=== PATIENT | female | born 1945 | race Caucasian/White ===

== ENCOUNTER 2019-07-13 17:22 | Inpatient (IN) ==
--- NOTE | 2019-07-13 17:46 | PROVIDER DOCUMENTATION ---
HPI-Chest Pain - General Stated Complaint: weakness Time Seen by Provider: 07/13/19 17:50 Source: patient Allergies/Adverse Reactions: Patient Allergies Allergy/AdvReac Type Severity Reaction Status Date / Time hydrochlorothiazide Allergy Unknown Verified 07/13/19 17:50 [From Dyazide] triamterene [From Dyazide] Allergy Unknown Verified 07/13/19 17:50 Home Medications: Home Medication List Medication Instructions Recorded Confirmed Last Taken Type Timolol 0.5% Oph Solution 1 drop BOTH EYES BID 04/11/18 07/13/19 04/11/18 21:00 History [Timoptic 0.5% Oph Solution] Gabapentin [Neurontin] 100 mg PO QHS capsule 04/13/18 07/13/19 Unknown Rx Rivaroxaban [Xarelto] 20 mg PO WSUPPER #30 tab 04/13/18 07/13/19 Unknown Rx ATORVAstatin [Lipitor] 1 tab PO QHS 07/13/19 07/13/19 Unknown History Albuterol 2.5MG/Ipratrop 0.5MG 1 inh INH PRN PRN 07/13/19 07/13/19 Unknown History [Duoneb (A & A)] Amiodarone [Cordarone] 1 tab PO BID 07/13/19 07/13/19 Unknown History Anastrozole 1 tab PO DAILY 07/13/19 07/13/19 Unknown History Aspirin 1 tab PO DAILY 07/13/19 07/13/19 Unknown History Benzonatate 1 cap PO TID 07/13/19 07/13/19 Unknown History Budesonide [Pulmicort] 1 inh INH PRN PRN 07/13/19 07/13/19 Unknown History Famotidine 2 tab PO BID 07/13/19 07/13/19 Unknown History Hydrocodone/Acetaminophen 1 tab PO Q4H PRN 07/13/19 07/13/19 Unknown History [Hydrocodone-Acetamin 5-325 mg] Insulin Glargine,Hum.rec.anlog 10 units SQ QHS 07/13/19 07/13/19 Unknown History [Lantus Solostar] Latanoprost 0.005% Oph Soln 1 drp BOTH EYES HS 07/13/19 07/13/19 Unknown History [Xalatan 0.005% Oph Soln] Levofloxacin 1 tab PO DAILY 07/13/19 07/13/19 Unknown History Methocarbamol 1 tab PO Q6H 07/13/19 07/13/19 Unknown History Metoprolol Succinate E.r. [Toprol 1 tab PO BID 07/13/19 07/13/19 Unknown History Xl] Ondansetron HCl [Zofran] 1 tab PO PRN PRN 07/13/19 07/13/19 Unknown History Trazodone [Desyrel] 1 tab PO QHS 07/13/19 07/13/19 Unknown History - History of Present Illness-CP Nature of Presenting Problem: 74 yr old F, hx of atrial fibrillation, s/p CABG 5 wks ago, presents with 3 days hx of worsening tightness and pressure in her chest, radiating into arms bilaterally, along with associated SOB. Pt stated she had been feeling weak for the past couple of days, and when her symptoms worsened today, she had to come in. She recently had a CABG done by a Dr. Durant in [place] a little over a month ago. Pt has been here for the past two nights with similar complaints, but states that her symptoms are worse today, notably her shortness of breath. She denies chest pain; instead describing it as a pressure. She denies nausea, vomiting. Location: reports: central Chest Pain Radiation: reports: arms Quality of Pain: reports: pressure, tightness Review of Systems - Adult - REVIEW OF SYSTEMS - ADULT Constitutional: reports: no symptoms reported Eyes: reports: no symptoms reported Ears, Nose, Mouth & Throat: reports: no symptoms reported Cardiovascular: reports: see HPI, chest pain Respiratory: reports: shortness of breath Gastrointestinal: reports: no symptoms reported Genitourinary: reports: no symptoms reported Musculoskeletal: reports: no symptoms reported Neurological: reports: no symptoms reported Psychiatric: reports: no symptoms reported Endocrine: reports: no symptoms reported Past History - Adult - PAST MEDICAL HISTORY-ADULT Review of Records: reports: Old Records Reviewed, Nursing Assessment Review Major Childhood Illnesses: reports: denies history Cardiovascular: reports: HTN Respiratory: reports: denies history Gastrointestinal: reports: GERD Obstetrical/Gynecological: reports: denies history Genitourinary: reports: denies history Musculoskeletal: reports: denies history Neurological: reports: denies history Psychiatric: reports: denies history Endocrine/Immune: reports: Diabetes Other Conditions: reports: other (sleep apnea) - PRIOR SURGERIES/PROCEDURES Surgical/Procedure History: reports: reviewed, not pertinent, colonoscopy, CABG, hysterectomy, other (cataract removal) - IMMUNIZATION STATUS Childhood Immunizations: See Nurse Assessment Flu Vaccine: See Nurse Assessment - FAMILY HISTORY Family History: reviewed, not pertinent Physical Exam-General - PHYSICAL EXAM-ADULT Initial Vital Signs Reviewed: Yes - CONSTITUTIONAL General Appearance: alert, mild distress - EYES Eyes: PERRL/EOMI - HEAD, EARS, NOSE, MOUTH & THROAT HENMT: normocephalic/atraumatic - NECK Neck: full range of motion - RESPIRATORY Respiratory: chest non-tender, lungs clear, normal breath sounds - CARDIOVASCULAR Cardiovascular: regular rate, rhythm - HEART Score HEART Score: History: Moderately Suspicious HEART Score: ECG: Non-Specific Repolarization Disturbance/LBBB/PM HEART Score: Age: > or = 65 Years HEART Score: Risk Factors for Atherosclerotic Disease: > or = 3 Risk Factors or History of Atherosclerotic Disease HEART Score: Troponin: < or = Normal Limit Total HEART Score:: 6 Progress - PLAN OF CARE/RESULTS Progress/Plan/Lab Results: Vital Signs - 8 hr 07/13/19 17:35 07/13/19 17:40 07/13/19 17:43 Temperature 98.1 F Pulse Rate 78 78 78 Respiratory Rate 26 H 27 H 29 H Blood Pressure 178/78 178/78 169/98 O2 Sat by Pulse Oximetry 92 L 93 L 96 07/13/19 17:45 07/13/19 18:00 07/13/19 18:15 Temperature Pulse Rate 77 74 73 Respiratory Rate 30 H 30 H 30 H Blood Pressure O2 Sat by Pulse Oximetry 96 95 96 07/13/19 18:30 07/13/19 18:45 07/13/19 18:50 Temperature Pulse Rate 76 74 74 Respiratory Rate 28 H 31 H 31 H Blood Pressure 207/106 O2 Sat by Pulse Oximetry 95 95 93 L 07/13/19 19:01 07/13/19 19:24 07/13/19 19:31 Temperature Pulse Rate 73 73 73 Respiratory Rate 24 20 24 Blood Pressure 214/102 216/105 230/91 O2 Sat by Pulse Oximetry 98 97 96 07/13/19 20:01 07/13/19 20:23 07/13/19 20:28 Temperature Pulse Rate 70 76 71 Respiratory Rate 24 23 24 Blood Pressure 236/93 206/96 193/100 O2 Sat by Pulse Oximetry 97 99 99 07/13/19 20:31 Temperature Pulse Rate 68 Respiratory Rate 23 Blood Pressure 190/90 O2 Sat by Pulse Oximetry 99 Laboratory Results - last 24 hr 07/13/19 07/13/19 07/13/19 18:30 18:30 18:30 WBC RBC Hgb Hct MCV MCH MCHC RDW Std Deviation Plt Count MPV Immature Gran % (Auto) Neut % (Auto) Lymph % (Auto) Wolfe % (Auto) Eos % (Auto) Baso % (Auto) Immature Gran # (Auto) Neut # (Auto) Lymph # (Auto) Wolfe # (Auto) Eos # (Auto) Baso # (Auto) PT 16.7 H D INR 1.33 D PTT (Actin FS) 33.9 Sodium Potassium Chloride Carbon Dioxide Anion Gap BUN Creatinine Estimated GFR/1.73 m2 BUN/Creatinine Ratio Glucose Estimat Average Glucose Hemoglobin A1c Calculated Osmolality Calcium Magnesium Total Bilirubin AST ALT Alkaline Phosphatase Creatine Kinase 39 Troponin T Qmc-[id number]-[id number] Pept 4788 H Total Protein Albumin Globulin Albumin/Globulin Ratio Urine Source Urine Color Urine Turbidity Urine pH Ur Specific Headrick Urine Protein Ur Glucose (Stick) Ur Ketones (Stick) Urine Blood Urine Nitrite Urine Bilirubin Urobilinogen Dipstick Urine Leukocytes Urine WBC (Auto) Urine RBC (Auto) U Epithel Cells (Auto) Urine Bacteria (Auto) 07/13/19 07/13/19 07/13/19 18:30 18:30 18:30 WBC 9.37 RBC 3.67 L Hgb 9.8 L Hct 31.2 L MCV 85.0 MCH 26.7 L MCHC 31.4 L RDW Std Deviation 14.9 H Plt Count 367 MPV 8.7 Immature Gran % (Auto) 0.2 Neut % (Auto) 77.7 H Lymph % (Auto) 13.7 L Wolfe % (Auto) 6.0 Eos % (Auto) 2.2 Baso % (Auto) 0.2 Immature Gran # (Auto) 0.02 Neut # (Auto) 7.28 H Lymph # (Auto) 1.28 Wolfe # (Auto) 0.56 Eos # (Auto) 0.21 Baso # (Auto) 0.02 PT INR PTT (Actin FS) Sodium Potassium Chloride Carbon Dioxide Anion Gap BUN Creatinine Estimated GFR/1.73 m2 BUN/Creatinine Ratio Glucose Estimat Average Glucose 146 Hemoglobin A1c 6.7 H Calculated Osmolality Calcium Magnesium Total Bilirubin AST ALT Alkaline Phosphatase Creatine Kinase Troponin T < 0.010 Lum-V-Qqjeugnsvho Pept Total Protein Albumin Globulin Albumin/Globulin Ratio Urine Source Urine Color Urine Turbidity Urine pH Ur Specific Headrick Urine Protein Ur Glucose (Stick) Ur Ketones (Stick) Urine Blood Urine Nitrite Urine Bilirubin Urobilinogen Dipstick Urine Leukocytes Urine WBC (Auto) Urine RBC (Auto) U Epithel Cells (Auto) Urine Bacteria (Auto) 07/13/19 07/13/19 07/13/19 21:30 21:30 22:26 WBC RBC Hgb Hct MCV MCH MCHC RDW Std Deviation Plt Count MPV Immature Gran % (Auto) Neut % (Auto) Lymph % (Auto) Wolfe % (Auto) Eos % (Auto) Baso % (Auto) Immature Gran # (Auto) Neut # (Auto) Lymph # (Auto) Wolfe # (Auto) Eos # (Auto) Baso # (Auto) PT INR PTT (Actin FS) Sodium 139 Potassium 3.2 L Chloride 98 Carbon Dioxide 24 L Anion Gap 17 BUN 10 Creatinine 0.8 Estimated GFR/1.73 m2 > 60 BUN/Creatinine Ratio 13 Glucose 177 H Estimat Average Glucose Hemoglobin A1c Calculated Osmolality 281 Calcium 9.4 Magnesium 1.4 L Total Bilirubin 1.01 H AST 12 ALT 11 Alkaline Phosphatase 124 H Creatine Kinase Troponin T < 0.010 Dda-D-Waqjsrrmiqy Pept Total Protein 7.0 Albumin 4.1 Globulin 2.9 Albumin/Globulin Ratio 1.4 Urine Source CLEAN CATCH Urine Color STRAW Urine Turbidity CLEAR Urine pH 6.5 Ur Specific Headrick 1.007 Urine Protein NEGATIVE Ur Glucose (Stick) NEGATIVE Ur Ketones (Stick) NEGATIVE Urine Blood NEGATIVE Urine Nitrite NEGATIVE Urine Bilirubin NEGATIVE Urobilinogen Dipstick NORMAL Urine Leukocytes NEGATIVE Urine WBC (Auto) <10 Urine RBC (Auto) 10-20 A U Epithel Cells (Auto) <10 Urine Bacteria (Auto) NEGATIVE Orders Category Date Time Status Cardiac Monitoring DIRECTED Care 07/13/19 17:40 Active Misc. NRSG Communication Order DIRECTED Care 07/13/19 19:28 Active CHEST-1 VIEW [RAD] Stat Exams 07/13/19 18:21 Completed A1C [A1C HGB W EST AVG GLUCOSE] [CHEM] Stat Lab 07/13/19 18:30 Completed CBC WITH DIFF [HEME] Stat Lab 07/13/19 18:30 Completed CK PROFILE [SP CHEM] Stat Lab 07/13/19 18:30 Completed COMPREHENSIVE METABOLIC PANEL [CHEM] Stat Lab 07/13/19 21:30 Completed MAGNESIUM [CHEM] Stat Lab 07/13/19 21:30 Completed PRO B-NATRIURETIC PEPTIDE Stat Lab 07/13/19 18:30 Completed PROTIME WITH INR [COAG] Stat Lab 07/13/19 18:30 Completed PTT [COAG] Stat Lab 07/13/19 18:30 Completed TROPONIN T Stat Lab 07/13/19 18:30 Completed TROPONIN T Stat Lab 07/13/19 21:30 Completed URINALYSIS W/POSS RFLX CULT [URINALYSIS] Stat Lab 07/13/19 22:26 Completed Carvedilol [Coreg] Med 07/13/19 22:58 Discontinued 6.25 mg PO NOW ONE Furosemide [Lasix] Med 07/13/19 19:28 Discontinued 20 mg IV NOW ONE Furosemide [Lasix] Med 07/13/19 22:58 Discontinued 20 mg IV NOW ONE Furosemide [Lasix] Med 07/13/19 19:25 Discontinued 40 mg IV NOW ONE Hydralazine [Apresoline] Med 07/13/19 19:25 Discontinued 10 mg IV NOW ONE Magnesium Sulfate 1 gm/D5w Med 07/13/19 22:59 Active 1 gm in 100 ml IV NOW Nitroglycerin Med 07/13/19 18:59 Discontinued 1 inch TOP NOW ONE Potassium Chloride E.r. [Klor-Con] Med 07/13/19 22:59 Discontinued 40 meq PO NOW ONE EKG [EKG] Stat Ther 07/13/19 17:40 Ordered EKG [EKG] Stat Ther 07/13/19 20:32 Draft Transfer/Admit Order [TRANSFER] Routine Transfer 07/13/19 23:01 Ordered Troponin x 1 wnl; EKG stable when compared to last 2 nights; current BP 216/105 Pt feels concerned about her safety if d/c home; in light of her multiple visits in the past few days, along with her recent CABG, will speak to hospitalist abo ut possible admission. Result Diagrams: 07/13/19 18:30 07/13/19 21:30 - EKG 1 Time of EKG reading by physician:: 17:35 EKG Read and Signed by:: Wojciech Cummins EKG Interpretation (*Must complete 3 of following elements*): Abnormal Rate: 80 Rhythm: sinus Lawrence: normal QRS: normal LA Interval: normal ST Wave: non-specific ST changes Prior EKG Comparison: unchanged from prior - CONSULTS/PCP/HOSPITALIST Notification #1 *Consult/PCP/Hospitalist*: Dr. Everett Time Discussed: 21:00 Consult Disposition: Admit Departure - Departure Date of Disposition Decision: 07/13/19 Time of Disposition Decision: 23:28 DIAGNOSIS: Chest pain Disposition: ADMITTED INPATIENT Certified Medical Emergency: Emergent Condition: Fair Referrals and Follow-Ups: Jason Dunaway MD [Primary Care Provider] - - Critical Care Note This patient required my direct & personal management of CC.: No Attestation - Physician/ CHRIS Attestation Patient care was provided by Advanced Practice Provider:: No The physician spent face to face time with patient:: Yes Advanced Practice Provider documentation review:: Supervising physician onsite and consulted in the evaluation and care of this patient. The physician did have a face to face encounter with the patient.
[2019-07-13 18:45] LABS: INR 1.33; PROTIME 16.7 Seconds (11.0-16.0)
[2019-07-13 18:46] LABS: PTT 33.9 Seconds (22.3-41.8)
--- NOTE | 2019-07-13 18:51 | Diag Imaging Result Doc PS360 ---
CHEST-1 VIEW - 07/13/2019 INDICATION: chest tightness COMPARISON: 07/11/2019 FINDINGS: There is a small left basilar pleural effusion which has decreased since the prior exam. Stable cardiomegaly. There is worsening pulmonary vascular congestion. No dense infiltrates or pulmonary edema. IMPRESSION: Mixed changes from prior. Electronically signed by Adeel Miranda 07/13/2019 6:48 PM
[2019-07-13] MEDS ORDERED: NITROGLYCERIN TOP ONE (18:59)
[2019-07-13] MEDS ORDERED: APRESOLINE IV ONE (19:25)
[2019-07-13] MEDS ORDERED: LASIX IV ONE ×3 (19:25→22:58)
--- NOTE | 2019-07-13 21:22 | EKG Report ---
Test Performed on : 07/13/2019 9:16:22 PM Test Reason : CP Blood Pressure : / mmHG Vent. Rate : 075 BPM Atrial Rate : 075 BPM P-R Int : 134 ms QRS Dur : 090 ms QT Int : 468 ms P-R-T Axes : 051 015 175 degrees QTc Int : 522 ms Normal sinus rhythm. ST & T wave abnormality, consider inferolateral ischemia Prolonged QT Abnormal ECG When compared with ECG of 13-JUL-2019 17:35, (Unconfirmed) QT has lengthened Unconfirmed Result
[2019-07-13 21:47] LABS: BASO# 0.02 X1000 (0.0-0.2); BASO% 0.2 % (0.0-0.8); EOS# 0.21 X1000 (0.0-0.7); EOS% 2.2 % (0.0-10.0); HEMATOCRIT 31.2 % (37.0-47.0); HEMOGLOBIN 9.8 g/dL (12.0-16.0); IMM GRAN# 0.02 X1000 (0.0-0.04); IMM GRAN% 0.2 % (0.0-0.5); LYMPH# 1.28 X1000 (1.2-3.4); LYMPH% 13.7 % (20.5-51.1); MCH 26.7 PG (27-31); MCHC 31.4 g/dL (33-37); MONO# 0.56 X1000 (0.11-0.59); MPV 8.7 FL (7.4-10.4); NEUT# 7.28 X1000 (1.4-6.5); NEUT% 77.7 % (42.2-75.2); PLT 367 X1000 (130-400); RBC 3.67 XMIL (4.2-5.4); RDW 14.9 % (11.5-14.5); WBC 9.37 X1000 (4.8-10.8)
[2019-07-13 22:18] LABS: AGAP 17; BUN 10 mg/dL (8-22); CALCIUM 9.4 mg/dL (8.8-10.2); CHLORIDE 98 mmol/L (98-107); COSMO 281; CREATININE 0.8 mg/dL (0.5-0.9); ESTIMATED GFR > 60; GLUCOSE 177 mg/dL (70-104); POTASSIUM 3.2 mmol/L (3.5-5.1); SODIUM 139 mmol/L (136-145); TCO2 24 mmol/L (25-35); TOTAL BILIRUBIN 1.01 mg/dL (0.20-1.00)
[2019-07-13 22:19] LABS: ALB/GLOB RATIO 1.4; ALBUMIN 4.1 g/dL (3.5-5.0); ALKALINE PHOSPHATASE 124 U/L (32-104); GOT 12 U/L (10-30); GPT 11 U/L (10-36); MAGNESIUM 1.4 mg/dL (1.5-2.7)
[2019-07-13 22:32] LABS: URINE SOURCE CLEAN CATCH
[2019-07-13 22:33] LABS: HEMOGLOBIN A1C 6.7 % (4.8-6.0)
[2019-07-13 22:49] LABS: BILIRUBIN URINE NEGATIVE (NEGATIVE); BLOOD URINE NEGATIVE (NEGATIVE); COLOR STRAW; GLUCOSE URINE NEGATIVE (NEGATIVE); KETONE URINE NEGATIVE (NEGATIVE); LEUKOCYTES URINE NEGATIVE (NEGATIVE); NITRITE URINE NEGATIVE (NEGATIVE); PH URINE 6.5; PROTEIN URINE NEGATIVE (NEGATIVE); SP GRAVITY URINE 1.007; TURBIDITY URINE CLEAR (CLEAR); UROBILINOGEN URINE NORMAL (NORMAL)
[2019-07-13 22:50] LABS: UR EPITHELIAL CELLS <10 /HPF (<10); URINE BACTERIA NEGATIVE /HPF; URINE WBC <10 /HPF (<10)
[2019-07-13] MEDS ORDERED: COREG PO ONE (22:58)
[2019-07-13] MEDS ORDERED: KLOR-CON PO ONE (22:59)
[2019-07-13] MEDS ORDERED: MAGNESIUM SULFATE 1 GM/D5W 1 GM/100 ML IVPB IV ONE (22:59)
[2019-07-14] MEDS ORDERED: NORCO-5 PO PRN (01:47)
[2019-07-14] MEDS: XARELTO PO SCH ×2 (02:22→17:22)
[2019-07-14] MEDS: HUMULIN R SUBQ SCH ×4 (06:01→21:29)
[2019-07-14 06:23] LABS: BASO# 0.03 X1000 (0.0-0.2); BASO% 0.4 % (0.0-0.8); EOS# 0.28 X1000 (0.0-0.7); EOS% 3.4 % (0.0-10.0); HEMATOCRIT 30.6 % (37.0-47.0); HEMOGLOBIN 9.6 g/dL (12.0-16.0); IMM GRAN# 0.02 X1000 (0.0-0.04); IMM GRAN% 0.2 % (0.0-0.5); LYMPH# 1.58 X1000 (1.2-3.4); LYMPH% 19.3 % (20.5-51.1); MCH 26.7 PG (27-31); MCHC 31.4 g/dL (33-37); MCV 85.2 FL (81-99); MONO# 0.59 X1000 (0.11-0.59); MONO% 7.2 % (1.7-9.3); MPV 8.5 FL (7.4-10.4); NEUT# 5.69 X1000 (1.4-6.5); NEUT% 69.5 % (42.2-75.2); PLT 352 X1000 (130-400); RBC 3.59 XMIL (4.2-5.4); RDW 14.9 % (11.5-14.5); WBC 8.19 X1000 (4.8-10.8)
[2019-07-14 06:51] LABS: AGAP 14; BUN 10 mg/dL (8-22); CALCIUM 9.2 mg/dL (8.8-10.2); CHLORIDE 99 mmol/L (98-107); CK PROFILE 34 U/L (24-173); COSMO 285; CREATININE 0.7 mg/dL (0.5-0.9); ESTIMATED GFR > 60; GLUCOSE 157 mg/dL (70-104); MAGNESIUM 1.6 mg/dL (1.5-2.7); POTASSIUM 3.4 mmol/L (3.5-5.1); SODIUM 142 mmol/L (136-145); TCO2 29 mmol/L (25-35)
--- NOTE | 2019-07-14 08:42 | EKG Report ---
Test Performed on : 07/14/2019 06:32:09 AM Test Reason : CHF Exacerbation,Chest Pain Blood Pressure : / mmHG Vent. Rate : 068 BPM Atrial Rate : 068 BPM P-R Int : 138 ms QRS Dur : 086 ms QT Int : 468 ms P-R-T Axes : 059 -09 123 degrees QTc Int : 497 ms Normal sinus rhythm. ST & T wave abnormality, consider anterolateral ischemia Abnormal ECG When compared with ECG of 13-JUL-2019 21:16, (Unconfirmed) No significant change was found Confirmed by Marshall ESQUEDA, Arnoldo Jones ([id number]) on 07/15/2019 8:26:15 AM
--- NOTE | 2019-07-14 08:44 | EKG Report ---
Test Performed on : 07/13/2019 5:35:41 PM Test Reason : CP Blood Pressure : / mmHG Vent. Rate : 080 BPM Atrial Rate : 080 BPM P-R Int : 144 ms QRS Dur : 090 ms QT Int : 414 ms P-R-T Axes : 056 014 148 degrees QTc Int : 477 ms Normal sinus rhythm. ST & T wave abnormality, consider lateral ischemia Prolonged QT Abnormal ECG When compared with ECG of 13-JUL-2019 17:34, (Unconfirmed) No significant change was found Unconfirmed Result
[2019-07-14] MEDS ORDERED: TOPROL XL PO SCH (09:00)
[2019-07-14] MEDS ORDERED: CORDARONE PO SCH (09:00)
[2019-07-14] MEDS: PEPCID PO SCH ×2 (10:02→20:43)
[2019-07-14] MEDS: LASIX IV SCH ×2 (10:02→20:43)
[2019-07-14] MEDS: ASPIRIN PO SCH (10:02)
[2019-07-14] MEDS: ARIMIDEX PO SCH (10:03)
[2019-07-14] MEDS: DUONEB (A & A) INH PRN ×2 (10:20→16:34)
[2019-07-14] MEDS ORDERED: MAGNESIUM SULFATE 2 GM/S.W.I. 2 GM/50 ML IVPB IV ONE (11:15)
--- NOTE | 2019-07-14 12:01 | HISTORY AND PHYSICAL ---
PRIMARY CARE PROVIDER: Jason Dunaway MD NATURAL RESOURCES EXTENSION EDUCATOR: Keith Toscano MD DATE AND TIME: 07/13/2019 at 2200. CHIEF COMPLAINT: Chest pressure and shortness of breath. HISTORY OF PRESENT ILLNESS: Ms. Ozuna is a 74-year-old female with a past medical history most notable for coronary artery disease status post coronary artery bypass graft approximately [address] Durant at [facility]. She also has a history of paroxysmal atrial fibrillation on chronic anticoagulation with Xarelto. The patient states that for approximately 3 days now she has had constant chest pressure that is in the center of her chest. She states she feels like someone is sitting on her chest. Though it has been constant for 3 days she does report becomes worse at times, especially when she exerts herself. The patient reports some associated symptoms of dizziness, though does have a history of vertigo. She is reporting shortness of breath as well. She also reports some orthopnea and exertional dyspnea. She also reports that she has had worsening swelling in her bilateral lower extremities over the past couple days as well. She denies any headache, abdominal pain, nausea or vomiting. The patient has reported a few episodes of diarrhea today. She states this has only occurred today. She has not been around anyone with similar symptoms. She has not had any recent travel, or any changes in medicines or any new medicines. She denies any hematochezia or melena. She is reporting some dysuria. Other than her swelling in bilateral extremities, she denies any other pain, numbness or tingling in extremities. Upon evaluation in the ER, EKG performed did show normal sinus rhythm at a rate of 80. When compared to her most recent EKG, there does not appear to be any acute changes. The patient does have T-wave inversion in leads 1, V4, V5 and V6. Though this was not present on her EKG in November, it was present on the EKG that was done a couple of days ago. Chest x- ray did show a small left basilar pleural effusion which has decreased since the prior exam. There is stable cardiomegaly, though there is worsening pulmonary vascular congestion, there are no dense infiltrates or pulmonary edema noted. The patient's blood pressure has been quite elevated in the ER with the readings in the 200/100 diastolically. ProBNP was elevated at 4788, though CK and troponin were negative at this time. She did have some mild hypokalemia and hypomagnesemia. She will be placed inpatient for further treatment evaluation of likely CHF exacerbation. REVIEW OF SYSTEM: A 14-point review of systems was conducted with the patient. All were negative except for pertinent positives mentioned above HPI. PAST MEDICAL HISTORY: 1. Coronary artery disease status post coronary artery bypass graft from for [address] Durant at [facility]. 2. Paroxysmal atrial fibrillation on chronic anticoagulation with Xarelto. 3. Hypertension. 4. Hyperlipidemia. 5. Diabetes mellitus. 6. Asthma. 7. Iron-deficiency anemia. 8. Unknown congenital heart anomaly. 9. History of malignant neoplasm of the left breast status post lumpectomy and radiation. 10. Glaucoma. 11. Vertigo. PAST SURGICAL HISTORY: 1. Coronary artery bypass graft. 2. Bilateral cataract surgery. 3. Cardiac ablation. 4. Rhinoplasty. 5. Right arm surgery x3 secondary to fractures. 6. Right ankle surgery. 7. Hysterectomy. SOCIAL HISTORY: The patient has no known history of tobacco, alcohol or illicit drug use. She does live by herself at assisted living facility. She does have assistive devices for ambulation of a cane and a walker. Her son was present at bedside during my examination. FAMILY HISTORY: Positive for her mother having a history of lung cancer, diabetes mellitus, and hypertension. Her father had a history of renal cell carcinoma, diabetes mellitus, heart disease and hypertension. She does have 1 brother who has a history of prostate cancer. ALLERGIES: Patient has allergies to hydrochlorothiazide and Dyazide. HOME MEDICATIONS: 1. DuoNeb nebulizer treatments, inhaled p.r.n. as directed. 2. Amiodarone 200 mg tablet p.o. b.i.d. 3. Anastrozole 1 mg p.o. daily. 4. Aspirin 325 mg p.o. daily. 5. Lipitor 40 mg p.o. at bedtime. 6. Tessalon Perles 100 mg capsule p.o. t.i.d. for cough. 7. Pulmicort nebulizer treatment inhaled p.r.n. as directed. 8. Famotidine 40 mg p.o. b.i.d. 9. Gabapentin 100 mg p.o. at bedtime. 10. Helen 5 mg tablet p.o. q.4 hours p.r.n. for pain. 11. Lantus 10 units subcutaneous at bedtime. 12. Latanoprost 0.005% ophthalmic solution, 1 drop in both eyes at bedtime. 13. Levaquin 750 mg p.o. daily. 14. Methocarbamol 500 mg p.o. 6 hours. 15. Toprol-XL 100 mg p.o. b.i.d. 16. Zofran 4 mg p.o. p.r.n. as directed. 17. Xarelto 20 mg p.o. with supper. 18. Timolol 0.5% ophthalmic solution, 1 drop in both eyes b.i.d. 19. Desyrel 50 mg tablet p.o. at bedtime. DIAGNOSTIC DATA: White blood cell count is 9370, hemoglobin 9.8, hematocrit is 31.2, platelet count is 367,000. PT 16.7, INR 1.33, PTT is 33.9. Sodium 139, potassium 3.2, chloride 98, serum bicarbonate 24, BUN 10, creatinine 0.8, glucose 177, calcium 9.4, magnesium 1.4. Liver function tests are within normal limits except for total bilirubin is slightly elevated at 1.01. Alkaline phosphatase is slightly elevated at 124. CK is 39. Troponin is less than 0.01. ProBNP was 4788. Urinalysis was obtained via clean catch, was positive for 10 to 20 red blood cells. It was otherwise negative for protein, glucose, ketones, blood cells, or bacteria. EKG showed normal sinus rhythm at a rate of 80 with a QTc of 477. Chest x-ray showed a small left basilar pleural effusion. This is decreased since prior exam. There is stable cardiomegaly. There is worsening pulmonary vascular congestion negative. No dense infiltrates or pulmonary edema. PHYSICAL EXAMINATION: VITAL SIGNS: Heart rate 68, respirations 20, blood pressure is 190/90. Oxygen saturation is 99 to 100 percent nasal cannula at 2 L. GENERAL: Ms. Ozuna is a pleasant 74-year-old female. She was resting in the ER stretcher. She was in no acute distress. She was awake, alert, and able to answer questions appropriately. HEENT: Head is atraumatic, normocephalic. Pupils are equal, round, reactive to light were 3 mm bilaterally brisk. Oral mucosa is moist. NECK: Supple. Trachea midline. There is no overt JVD noted. There is no hepatic jugular reflex present. CARDIOVASCULAR: Patient has S1-S2 present. No murmurs, gallops, rubs appreciated with a regular rate and rhythm. PULMONARY: Patient has symmetrical chest expansion bilaterally. Lung sounds are clear to auscultation in bilateral upper clement though she was diminished in bilateral bases. ABDOMEN: Soft, does not appear to be distended. The patient does have a protuberant abdomen noted. Bowel sounds were present in all 4 quadrants, were normoactive. EXTREMITIES: No cyanosis noted. The patient does have 1 to 2+ pitting edema noted in bilateral lower extremities from the knees down. Pulse, motor, and sensory is intact in all extremities. Radial and pedal pulses were 2+ bilaterally. NEUROLOGICAL: Patient is alert and oriented to person, place, time and situation. She is she is able to move all extremities. There were no focal neurological deficits noted. ASSESSMENT AND PLAN: 1. Congestive heart failure exacerbation. For this, we have given the patient initial 40 mg of Lasix in the ER. We will monitor response to this with strict intake and output and daily weights. We have continued her regularly prescribed medicines of amiodarone, metoprolol. We will continue with the series of cardiac enzymes. We will repeat EKG in the morning. The patient did have transesophageal echocardiogram performed in November 2018, had an estimated ejection fraction of 60%. Though given her recent coronary artery bypass graft and reported symptoms we will go ahead and order to have this repeated. We have placed a consult with Cardiology with Dr. Toscano and will await his evaluation and further recommendations for management. 2. Coronary artery disease status post coronary artery bypass graft 5 weeks ago. We will continue her aspirin in the other already prescribed heart medications as mentioned above. 3. Paroxysmal atrial fibrillation on chronic anticoagulation with Xarelto. We have continued her amiodarone and Toprol. We will continue to follow. Her heart rate is controlled at this time. 4. Hypertension. We will continue her regularly prescribed medicines. The patient's blood pressure was elevated upon arrival in the ER though after being given nitroglycerin paste, IV hydralazine and a 1 time dose of Coreg has improved with the most recent reading being 154/66. 5. Hyperlipidemia. We will continue her atorvastatin. 6. Diabetes mellitus. We will continue her Lantus. We have also placed her with sliding scale regular insulin coverage as well. 7. Deep vein thrombosis prophylaxis. We provided with previously mentioned Xarelto. 8. Mild electrolyte abnormalities of hypokalemia and hypomagnesemia. The patient's potassium was 3.2, magnesium was 1.4. We have ordered for her to receive replacement of both of these. We will recheck chemistries tomorrow morning. She has been placed on PVC unit with continuous cardiac telemetry for close monitoring. We will do frequent vital signs, strict intake and output, incentive spirometry. She will be on a diabetic and heart healthy diet. Further orders and recommendations pending hospital course, diagnostic studies, and physician evaluation. Dictated by DREAD Heller for Hank Everett MD This patient was interviewed and examined simaltaneously with DREAD. All findings and treatment plans were discussed at that time. This dictation acurately reflects our findings and treatment plan. cc: Hank Everett MD MTDD
[2019-07-14] MEDS: TIMOPTIC 0.5% OPH SOLUTION BOTH EYES SCH ×2 (12:23→20:45)
[2019-07-14] MEDS: ALDACTONE PO SCH (12:24)
--- NOTE | 2019-07-14 16:33 | Diag Imaging Result Doc PS360 ---
CT THORAX W/O CONTRAST - 07/14/2019 INDICATION: ATELECTASIS LEFT LUNG COMPARISON: Chest x-ray from 07/13/2019 FINDINGS: There are sternotomy wires and CABG changes. Heart size is normal with no pericardial effusion. There is a small left basilar pleural effusion. There is some collapse of the lingula and left lower lobe. There is a trace right pleural effusion as well. There is some hazy interstitial infiltrate bilaterally compatible with pulmonary edema. There are moderate degenerative changes of the spine. No acute or suspicious bony lesion. IMPRESSION: 1. Interstitial pulmonary edema. 2. Trace right and small left pleural effusions. 3. Mild collapse of the left lower lobe and lingula. This exam was performed using automated exposure control, adjustment of mA or kV according to patient size, and/or use of iterative reconstruction technique Electronically signed by Adeel iMranda 07/14/2019 4:31 PM
--- NOTE | 2019-07-14 16:42 | PROGRESS NOTE ---
DATE: 07/14/2019 SUBJECTIVE: Today Ms. Ozuna referred to be doing fairly okay. Continues to have some shortness of breath. Ms. Ozuna was admitted yesterday because of progressively worsening shortness of breath associated with dyspnea on exertion, orthopnea and PND. Ms. Ozuna underwent CABG about 6 weeks ago for coronary artery disease. OBJECTIVE: Vital Signs: This morning, her blood pressure was 134/81, pulse of 73, respiration was 20, temperature 97.9 degrees. Patient was saturating 100% on 2 L. General: On general exam, Ms. Ozuna is a 74-year-old female. She was in bed in no distress. HEENT: Mucosa is pink and moist. Anicteric. Acyanotic. Neck: Supple. I did not really see any JVD. Chest: Air entry was bilaterally reduced. There was diffuse crackles in posterior lung clement. Cardiovascular: Regular rate and rhythm. No murmurs. There was a fresh sternotomy scar on the anterior chest wall. Abdomen: Soft. It is distended, but nontender. Bowel sounds present, but hypoactive. Extremities: Positive pedal edema bilaterally, about 1+. 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 There is no focal neurological deficit. LABORATORY DATA: Has been reviewed. Patient has mild normocytic anemia with a hemoglobin of 9.6. Chemistry is also reviewed. Potassium was 3.4. Rest of chemistry was unremarkable. IMAGING STUDIES: 1. A chest x-ray did show mixed changes from prior. 2. An EKG repeat this morning shows normal sinus rhythm with voltage criteria for left ventricular hypertrophy. T-wave inversion in the lateral leads. 3. The patient pro-B on admission was 4788, almost the same as the one he had 3 days ago. 4. So far, troponins have been negative. ASSESSMENT: 1. Dyspnea on presentation associated with orthopnea and paroxysmal nocturnal dyspnea, suggestive of congestive heart failure in exacerbation. The patient is currently on diuretic therapy. Echocardiogram is going to be performed. Patient will be seen by Cardiology. 2. History of coronary artery disease status post coronary artery bypass graft from about 5 to [address] More in [facility]. 3. Hypertension, uncontrolled; titrate medications. 4. Diabetes mellitus. 5. Dyslipidemia. cc: MD MAYRA Leblanc
[2019-07-14] MEDS ORDERED: BENADRYL PO ONE (17:02)
[2019-07-14] MEDS: LOPRESSOR PO SCH (17:22)
--- NOTE | 2019-07-14 17:36 | CARDIOLOGY CONSULTATION ---
DATE: 07/14/2019 CONSULTATION REQUESTED BY: Hospitalist service. PRIMARY HEAD LIBRARIAN: Keith Toscano. SURGEON: Ajit Durant. PHYSICIAN: Trevin Hull. REASON FOR THE CONSULTATION: Congestive heart failure, dyspnea. HISTORY: Mrs. Ozuna is a 74-year-old female who presented to the emergency room on 3 consecutive days on July 11, again on July 12 and then on July 13 with increasing dyspnea and generalized weakness, fatigue. The patient says that she had undergone open heart surgery in [place] on 06/01/2019. At that time, the surgery included coronary bypass surgery with left mammary artery to LAD, vein graft to 1st obtuse marginal branch and vein graft to the posterior descending branch of the right coronary artery. They also did a bilateral pulmonary venous ablation and ligation of the left atrial appendage. Dr. Ajit Durant was the performing surgeon. The patient was kept there in [place] for about a week and then she was discharged to a rehab facility to continue her convalescence. She was kept for a couple of weeks at the rehab facility and then she was discharged home. The patient said that she was still significantly breathless and she never really got back to a full presurgical status and continued to decline over the course of the ensuing days and that is the reason why she ended up presenting back to the hospital. Upon presentation, they did a chest x-ray that shows mixed changes including small left basilar pleural effusion, stable cardiomegaly, worsening pulmonary vascular congestion. ProBNP level was elevated at 4788. BUN was 10, creatinine 0.8. Potassium was low at 3.2. White cell count 9370, hemoglobin 9.8 g percent. Sodium 139. Liver function test, bilirubin is 1.01, alkaline phosphatase 124. PAST HISTORY: Somewhat extensive. She was found to have an abnormal stress test with mild degree of ischemia of the anterior wall of the left ventricle. 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 Heart catheterization was performed in August 2015. Subsequently, she developed paroxysmal atrial fibrillation and has undergone pulmonary venous ablation by Dr. Castañeda in [place] and after the ablation she developed recurrent atrial fibrillation and at that time, they suggested a reassessment of her coronary arteries and they concluded that she needed to have bypass surgery, which was carried out by Dr. Durant as I described at the beginning of the H and P. The patient has history of hypertension, hyperlipidemia. She has been diagnosed with breast cancer and diabetes mellitus. She has sleep apnea syndrome. SURGICAL HISTORY: Cataract extraction, hysterectomy, left breast lumpectomy with cancer. [facility]. SOCIAL HISTORY: She is . She has 1 child. The patient has been on disability because of poor vision. She is not a drinker. FAMILY HISTORY: Positive for heart disease in her father and son. REVIEW OF SYSTEMS: Since her discharge from [facility], she has been complaining of some exertional dyspnea. No significant chest pain. The incisional area has healed gradually. HOME MEDICATIONS: Listed included albuterol, amiodarone 200 twice a day, anastrozole 1 tablet daily which is 1 mg daily, atorvastatin is 40 mg daily, Pulmicort as needed, famotidine is 40 mg twice a day ,gabapentin 100 at bedtime, metoprolol ER 100 mg twice a day, Xarelto 20 mg at bedtime, timolol eye drops and trazodone. She also takes Levaquin and methocarbamol. PHYSICAL EXAMINATION: Vital signs: Blood pressure is 157/64, temperature 98.6 degrees, pulse 73, respirations 20. She is awake, alert, no distress. HEENT: No jugular venous distention. She does have cervical bruits. Chest: Well healed sternotomy scar. Shows diminished breath sounds at the left base. Heart: Sounds are regular rhythmic. I do not hear murmurs. No gallop. Abdomen: Nontender. Extremities: Show good pulses. No edema. Neuro: Nonfocal. Moves 4 extremities. Her 12 lead EKG done at 6:32 a.m. today shows sinus rhythm with a nonspecific T-wave abnormality. There are no pathological Q-waves to suspect a recent infarction. IMPRESSION: 1. Patient who presents with increasing dyspnea following open-heart CABG procedure about 6 weeks ago or so. 2. 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 3. History of paroxysmal atrial fibrillation, status post pulmonary venous isolation procedure and then recent surgical procedure for the same reason. 4. History of breast cancer, stable. 5. History of hypertension. 6. History of diabetes mellitus type 2. 7. Suspect diastolic heart failure versus loculated pleural effusion on the left lung to explain her current symptoms. RECOMMENDATION: We will do an echocardiogram. I will get a CT scan of the chest without contrast. We will add ELIDA inhibitors to her regimen. We will see how she does. At this time, she does not appear to be in acute distress. Further advice will be forthcoming. cc: Carson Burt MD MTDD
--- NOTE | 2019-07-14 18:09 | ECHO REPORT ---
ORDER DATE: 07/14/2019 INTERPRETING PHYSICIAN: Carson Burt MD. CLINICAL INDICATIONS: CHF, post bypass. M-MODE MEASUREMENTS: Left ventricle end diastole: 4.2 cm. Left ventricle end systole: 2.4 cm. Posterior wall: 0.8 cm. Interventricular septum: 0.9 cm. Left atrium: 3.9 cm. Aortic diameter: 3.0 cm. SUMMARY OF 2-DIMENSIONAL IMAGIN. The study was technically difficult. The left ventricular function is normal, ejection fraction of 64%. There is no wall motion abnormality. 2. The right ventricle appears to be normal. 3. The left atrium is mild to moderately enlarged. 4. The aortic valve looks normal. Color flow mapping unremarkable. 5. The mitral valve shows mild degree of regurgitation. 6. Pulse wave Doppler of mitral inflow shows a pseudonormal pattern, tall E wave with a short A wave. 7. The tissue Doppler of septal and lateral mitral annulus shows a decreased velocity at 5 cm indicating impaired left ventricular relaxation. 8. The pulmonary venous flow is normal. The deceleration time of E wave is not short. 9. The E/E prime ratio is significantly elevated indicating elevation of left atrial pressure. 10.There is significant diastolic dysfunction. 11.The Doppler pattern of aortic valve is unremarkable. 12.The pulmonic valve shows an unremarkable pattern with mild degree of regurgitation. There is calcification of the mitral annulus. 13.I do not see evidence of pericardial effusion, although the pericardium appears to be somewhat thickened. SUMMARY: This study shows: 1. Excellent left ventricular systolic function. 2. Mild to moderately enlargement of left atrium. 3. Pulmonary pressure is estimated in this study at 33-38 mmHg. 4. Diastolic dysfunction with elevation of left atrial pressure. Clinical correlation is recommended. cc: Carson Burt MD [facility]
[2019-07-14] MEDS: LIPITOR PO SCH (20:43)
[2019-07-14] MEDS: ALTACE PO SCH (20:43)
[2019-07-14] MEDS: NEURONTIN PO SCH (20:43)
[2019-07-14] MEDS: XALATAN 0.005% OPH SOLN BOTH EYES SCH (21:30)
[2019-07-14] MEDS: LANTUS INSULIN SUBQ SCH (21:36)
[2019-07-15] MEDS: LOPRESSOR PO SCH ×3 (01:13→17:17)
[2019-07-15] MEDS ORDERED: LASIX IV ONE (04:38)
[2019-07-15] MEDS: HUMULIN R SUBQ SCH ×4 (06:22→20:58)
--- NOTE | 2019-07-15 07:18 | EKG Report ---
Test Performed on : 07/15/2019 06:36:31 AM Test Reason : paroxysmal atrial fibrillation Blood Pressure : / mmHG Vent. Rate : 058 BPM Atrial Rate : 058 BPM P-R Int : 140 ms QRS Dur : 090 ms QT Int : 552 ms P-R-T Axes : 050 -04 092 degrees QTc Int : 541 ms Sinus bradycardia. Possible Left atrial enlargement Left ventricular hypertrophy with repolarization abnormality Prolonged QT Abnormal ECG When compared with ECG of 14-JUL-2019 06:32, (Unconfirmed) Nonspecific T wave abnormality, improved in Inferior leads T wave inversion no longer evident in Anterolateral leads Confirmed by Marshall ESQUEDA, Arnoldo Jones ([id number]) on 07/15/2019 8:35:29 AM
[2019-07-15 07:32] LABS: IRON SATURATION 13 %; TIBC 272 ug/dL; TOTAL IRON 35 ug/dL (49-151); UNBOUND IRON 237 ug/dL (112-346)
--- NOTE | 2019-07-15 07:36 | Diag Imaging Result Doc PS360 ---
CHEST-PORTABLE - 07/15/2019 INDICATION: Crackles bilaterally, SOB COMPARISON: 07/13/2019 FINDINGS: There is a small to moderate left basilar pleural effusion that has worsened since prior. Stable cardiomegaly and pulmonary vascular congestion. No definite edema. IMPRESSION: Worsening left basilar pleural effusion. Electronically signed by Adeel Miranda 07/15/2019 7:34 AM
[2019-07-15 07:42] LABS: AGAP 15; BUN 12 mg/dL (8-22); CALCIUM 9.4 mg/dL (8.8-10.2); CHLORIDE 96 mmol/L (98-107); COSMO 278; CREATININE 0.8 mg/dL (0.5-0.9); ESTIMATED GFR > 60; GLUCOSE 147 mg/dL (70-104); MAGNESIUM 1.6 mg/dL (1.5-2.7); POTASSIUM 2.7 mmol/L (3.5-5.1); SODIUM 138 mmol/L (136-145); TCO2 27 mmol/L (25-35)
[2019-07-15 08:00] LABS: FERRITIN 149 ng/mL (13-150)
[2019-07-15] MEDS ORDERED: MAGNESIUM SULFATE 4 GM/S.W.I. 4 GM/100 ML IVPB IV ONE (08:11)
[2019-07-15] MEDS: TIMOPTIC 0.5% OPH SOLUTION BOTH EYES SCH ×2 (08:35→20:44)
[2019-07-15] MEDS ORDERED: MAGNESIUM SULFATE 2 GM/S.W.I. 2 GM/50 ML IVPB IV ONE ×2 (08:36→09:00)
[2019-07-15] MEDS: ALTACE PO SCH ×2 (08:49→20:43)
[2019-07-15] MEDS: ASPIRIN PO SCH (08:49)
[2019-07-15] MEDS: LASIX IV SCH ×2 (08:50→20:43)
[2019-07-15] MEDS: PEPCID PO SCH ×2 (08:50→20:44)
[2019-07-15] MEDS: POTASSIUM CHLORIDE 20% LIQUID PO SCH ×2 (08:50→12:38)
[2019-07-15] MEDS: ALDACTONE PO SCH ×5 (08:50→21:18)
[2019-07-15] MEDS: CORDARONE PO SCH (08:50)
[2019-07-15] MEDS ORDERED: POTASSIUM CHLORIDE 20 MEQ/SWI 20 MEQ/100 ML IVPB IV SCH (09:00)
[2019-07-15] MEDS: ARIMIDEX PO SCH (09:06)
[2019-07-15] MEDS: DUONEB (A & A) INH PRN (10:07)
--- NOTE | 2019-07-15 10:21 | CARDIOLOGY PROGRESS NOTE ---
DATE: 07/15/2019 CHIEF COMPLAINT: Shortness of breath, weakness. SUBJECTIVE: Ms. Ozuna is feeling better today. She is not having any chest pain. She is not short of breath. EKG done today shows sinus rhythm with a nonspecific T wave abnormality. Echocardiogram that we did yesterday shows well preserved left ventricular systolic function. There is no wall motion abnormality. A chest CT shows a mild collapse of the left lower lobe and lingula with a trace right and a small left pleural effusion with interstitial pulmonary edema. The patient at this time seems to be more comfortable. OBJECTIVE: Blood pressure is 162/50, temperature 98.2, pulse 61, respirations 17. She is awake, alert and oriented, no distress. HEENT is unremarkable. Chest reveals diminished breath sounds in the left lung with some dullness to percussion at the left base. Heart sounds are regular and rhythmic without gallop or murmur. Abdomen is soft, nontender. No masses. No hepatomegaly. Extremities show good pulses, no peripheral edema. Neurologic: Follows commands. Moves all 4 extremities. DIAGNOSTIC DATA: Blood work shows sodium 138, potassium 2.7, BUN is 12, creatinine 0.8. Her iron is 35, total iron binding capacity is 272. Saturation is 13%. IMPRESSION: 1. The patient presents with increasing dyspnea, malaise, shortness of breath. Findings consistent with congestive heart failure, diastolic type. 2. Status post coronary bypass surgery x3 on 06/01/2019. 3. History of paroxysmal atrial fibrillation, status post percutaneous ablation and also intraoperative ablation of atrial fibrillation. 4. History of hypertension. 5. History of diabetes mellitus type 2. 6. 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 RECOMMENDATIONS: The patient at this time seems to be better. She has hyperkalemia. We are going to replace potassium and magnesium. I am going to add spironolactone to her regimen to try to get her potassium stabilized and her heart failure stabilized. I think the patient will probably do well by going to a rehab facility for a few days if feasible. If not, we will just try to make sure that there is good nursing followup at home. cc: Carson Burt MD
[2019-07-15] MEDS: VENOFER 250 MG in NS 150 ML IV SCH (11:19)
--- NOTE | 2019-07-15 13:30 | PROGRESS NOTE ---
DATE: 07/15/2019 SUBJECTIVE: This morning, Ms. Ozuna refers to be doing a little better. Said her breathing has significantly improved. OBJECTIVE: Vital Signs: Blood pressure is 162/50, pulse 61, respirations are 17, temperature is 98.2 degrees, patient is saturating 98% on 2 L. General Examination: Ms. Ozuna is a 74-year- old, elderly, female. She is in bed. No distress. HEENT: Mucosa is pink and moist. Anicteric. Acyanotic. Neck: Supple. No JVD. Chest: Air entry is bilaterally reduced. There are still some crackles posteriorly. Cardiovascular: Regular rate and rhythm. No murmurs. There is a sternotomy scar on the anterior chest wall. GI: Abdomen is soft. Distended but nontender. Bowel sounds present. Extremities: About 1+ pedal edema. CRUSHER PLANT OPERATOR: The patient is awake, alert, oriented. Is and Os: Not documented. Current weight is 186. Patient's weight on admission was 198. This is about a 12 pound weight loss. Current medications have all been reviewed. Laboratory Data: The patient is normocytic anemic. Chemistry shows a potassium of 2.7. Iron studies reveal a percent saturation of 13 which is remarkably low. Despite the ferritin being within normal range, we think the patient is iron deficient. ASSESSMENT: 1. Dyspnea on presentation secondary to congestive heart failure with a preserved ejection fraction. Patient's echocardiogram yesterday showed ejection fraction of 64% with no wall motion abnormality. There was diastolic dysfunction noted on the echocardiogram. 2. Fluid overload secondary to congestive heart failure. We will continue with the diuretic therapy. 3. Uncontrolled hypertension. We will continue titrating her blood pressure medication for adequate pressure control. 4. Diabetes mellitus, on insulin. 5. Dyslipidemia. We will continue with statin therapy. 6. Hypokalemia, will be replaced. 7. Relative iron deficiency. The patient has been started on Venofer infusion. 8. Generalized weakness and deconditioning. We will get physical therapy to start working with Ms Ozuna. cc: Nico Galvez MD
[2019-07-15] MEDS: TYLENOL PO PRN (15:09)
[2019-07-15] MEDS: XARELTO PO SCH (17:17)
[2019-07-15] MEDS: NEURONTIN PO SCH (20:43)
[2019-07-15] MEDS: LIPITOR PO SCH (20:43)
[2019-07-15] MEDS: XALATAN 0.005% OPH SOLN BOTH EYES SCH (20:45)
[2019-07-15] MEDS: LANTUS INSULIN SUBQ SCH (21:18)
[2019-07-16] MEDS: LOPRESSOR PO SCH ×3 (01:36→17:06)
[2019-07-16 05:48] LABS: HEMATOCRIT 31.3 % (37.0-47.0); HEMOGLOBIN 9.6 g/dL (12.0-16.0); MCH 27.2 PG (27-31); MCHC 30.7 g/dL (33-37); MCV 88.7 FL (81-99); MPV 8.5 FL (7.4-10.4); RBC 3.53 XMIL (4.2-5.4); WBC 8.32 X1000 (4.8-10.8)
[2019-07-16 06:14] LABS: AGAP 11; BUN 13 mg/dL (8-22); CALCIUM 9.3 mg/dL (8.8-10.2); CHLORIDE 97 mmol/L (98-107); COSMO 280; CREATININE 0.9 mg/dL (0.5-0.9); ESTIMATED GFR > 60; GLUCOSE 144 mg/dL (70-104); MAGNESIUM 2.1 mg/dL (1.5-2.7); POTASSIUM 3.3 mmol/L (3.5-5.1); SODIUM 139 mmol/L (136-145); TCO2 31 mmol/L (25-35)
[2019-07-16] MEDS: HUMULIN R SUBQ SCH ×4 (06:23→21:53)
--- NOTE | 2019-07-16 07:22 | EKG Report ---
Test Performed on : 07/16/2019 06:50:49 AM Test Reason : paroxysmal atrial fibrillation Blood Pressure : / mmHG Vent. Rate : 057 BPM Atrial Rate : 057 BPM P-R Int : 142 ms QRS Dur : 088 ms QT Int : 498 ms P-R-T Axes : 053 -09 108 degrees QTc Int : [address] & T wave abnormality, consider lateral ischemia Prolonged QT Abnormal ECG When compared with ECG of 15-JUL-2019 06:36, T wave inversion now evident in Lateral leads QT has shortened Confirmed by Marshall ESQUEDA, Arnoldo Jones ([id number]) on 07/16/2019 8:25:02 AM
[2019-07-16] MEDS: ALTACE PO SCH ×2 (08:06→20:02)
[2019-07-16] MEDS: CORDARONE PO SCH (08:06)
[2019-07-16] MEDS: PEPCID PO SCH ×2 (08:06→20:02)
[2019-07-16] MEDS: LASIX IV SCH ×2 (08:06→20:02)
[2019-07-16] MEDS: VENOFER 250 MG in NS 150 ML IV SCH (08:06)
[2019-07-16] MEDS: ARIMIDEX PO SCH (08:07)
[2019-07-16] MEDS: ASPIRIN PO SCH (08:07)
[2019-07-16] MEDS: ALDACTONE PO SCH ×3 (08:07→20:02)
[2019-07-16] MEDS: TIMOPTIC 0.5% OPH SOLUTION BOTH EYES SCH ×2 (08:16→20:03)
[2019-07-16] MEDS ORDERED: KLOR-CON PO ONE (08:44)
[2019-07-16] MEDS: DUONEB (A & A) INH PRN (09:15)
--- NOTE | 2019-07-16 11:06 | PROGRESS NOTE ---
DATE: 07/16/2019 SUBJECTIVE: This morning, Ms. Ozuna refers to be doing fairly okay, feels slightly stronger than yesterday. OBJECTIVE: Vital Signs: Blood pressure is 154/65, pulse of 60, respirations 18, temperature 98.2 degrees, the patient is saturating 97% on room air. General: Ms. Ozuna is a 74-year-old, elderly, female. She is in bed. No distress. HEENT: Mucosa is pink and moist. Anicteric. Acyanotic. Neck: Supple. Chest: Good air entry bilateral. There are still a few crackles in the posterior lung clement. Cardiovascular: Regular rate and rhythm. No murmurs, no rubs, no gallops. There is a sternotomy scar on the anterior chest wall. Gastrointestinal: Abdomen is soft, distended, but nontender. Bowel sounds present. Extremities: No pedal edema. APIGEE DEVELOPER: The patient is awake, alert, and oriented. Urine output has not been documented. LABORATORY DATA: Hemoglobin is 9.6, rest of CBC is unremarkable. Chemistry is also reviewed. Normal renal function. Potassium is 3.3. This will be replaced orally. MEDICATIONS: Medications have all been reviewed. No changes currently. ASSESSMENT: 1. Dyspnea on presentation secondary to congestive heart failure exacerbation. 2. Fluid overload due to congestive heart failure with preserved ejection fraction. 3. Left lower lobe atelectasis on CT scan. The patient is getting respiratory therapy. 4. Uncontrolled hypertension. Blood pressures are a lot better today. We are going to continue with medication titration. 5. Diabetes mellitus. Controlled on insulin therapy. 6. Dyslipidemia. The patient is on statin. 7. Relative iron deficiency. The patient is getting iron infusion. 8. Hypokalemia. Will continue to replace. 9. Generalized weakness and deconditioning. Physical Therapy is on board. In general, I think Ms. Ozuna is doing a lot better. Hypoxemia is improving. She is getting respiratory therapy for the atelectasis of the lungs. She is getting gentle diuresis for the congestive heart failure. Her current weight is 186, she was 198 on admission, and she obviously clinically is losing the weight. We are going to continue with the current treatment, and will re-evaluate her tomorrow morning to assess her readiness for discharge. She is pending a Physical Therapy evaluation today. cc: Nico Galvez MD
--- NOTE | 2019-07-16 13:00 | CARDIOLOGY PROGRESS NOTE ---
DATE: 07/16/2019 CHIEF COMPLAINT: Shortness of breath, weakness, and fatigue. SUBJECTIVE: Mrs. Ozuna is still feeling somewhat tired. She is on oxygen. She still does not feel up to par. She denies having any chest pain. She tells me that she is supposed to have a followup with Dr. Durant at his office tomorrow. Otherwise, she feels like she is better than when she first came in. OBJECTIVE: Blood pressure today is 154/65, pulse 56, respirations 16, temperature 98.2. She is awake, alert, in no distress. HEENT unremarkable. Chest reveals diminished breath sounds in the left base. Heart sounds are regular and rhythmic without gallop or murmur. Abdomen is soft, nontender. Extremities show good pulses, no peripheral edema. Neurologic exam: Follows commands. Moves all four extremities. IMPRESSION: 1. The patient who presented with increasing dyspnea and shortness of breath. She appears to have congestive heart failure, diastolic type. This is probably complicated by the presence of left lower lobe atelectasis/pleural effusion secondary to her recent coronary bypass procedure from 06/01/2019. 2. History of paroxysmal atrial fibrillation, status post percutaneous ablation and also intraoperative atrial fibrillation. 3. 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 4. History of hypertension. 5. History of diabetes mellitus type 2. RECOMMENDATIONS: The patient will continue present management of diastolic heart failure with spironolactone. Will try to optimize electrolytes. We will check arterial blood gases on room air in the morning. She may need to be discharged on oxygen. She will follow up with Dr. Durant as suggested and later on she will follow up with Dr. Keith Toscano at the office. cc: Carson Burt MD [facility]
[2019-07-16] MEDS: TYLENOL PO PRN ×2 (13:54→20:02)
[2019-07-16] MEDS: XARELTO PO SCH (17:06)
[2019-07-16] MEDS: LIPITOR PO SCH (20:02)
[2019-07-16] MEDS: NEURONTIN PO SCH (20:02)
[2019-07-16] MEDS: XALATAN 0.005% OPH SOLN BOTH EYES SCH (20:03)
[2019-07-16] MEDS: LANTUS INSULIN SUBQ SCH (21:54)
[2019-07-17] MEDS: LOPRESSOR PO SCH ×3 (03:50→22:33)
[2019-07-17 04:21] LABS: BLOOD TYPE ARTERIAL; SAMPLE BLOOD
[2019-07-17 04:22] LABS: ALLEN TEST YES; BE 8.3 mmoll (-3.0-3.0); HCO3-(ACT) 31.3 mmoll (20.0-26.0); METHB 0.7 % (0.0-1.5); O2(CT) 12.9 mL/dL (15.0-23.0); O2HB 91.3 % (95.0-99.0); PCO2(98.6) 48 mmHg (35-45); PO2(98.6) 61 mmHg (60-100); SAO2 94.5 % (95.0-100.0); pH(98.6) 7.45 (7.35-7.45)
[2019-07-17 04:23] LABS: MODALITY ROOM AIR
[2019-07-17 06:11] LABS: CREATININE 1.1 mg/dL (0.5-0.9); MAGNESIUM 1.9 mg/dL (1.5-2.7); POTASSIUM 4.5 mmol/L (3.5-5.1)
[2019-07-17] MEDS: HUMULIN R SUBQ SCH ×4 (07:00→22:34)
--- NOTE | 2019-07-17 07:52 | EKG Report ---
Test Performed on : 07/17/2019 07:03:55 AM Test Reason : paroxysmal atrial fibrillation Blood Pressure : / mmHG Vent. Rate : 057 BPM Atrial Rate : 057 BPM P-R Int : 142 ms QRS Dur : 088 ms QT Int : 516 ms P-R-T Axes : 051 005 107 degrees QTc Int : 502 ms Sinus bradycardia. Left ventricular hypertrophy with repolarization abnormality Prolonged QT Abnormal ECG When compared with ECG of 16-JUL-2019 06:50, No significant change was found Confirmed by Marshall ESQUEDA, Arnoldo Jones ([id number]) on 07/17/2019 9:07:52 AM
[2019-07-17] MEDS: TIMOPTIC 0.5% OPH SOLUTION BOTH EYES SCH ×2 (08:07→20:07)
[2019-07-17] MEDS: VENOFER 250 MG in NS 150 ML IV SCH (08:07)
[2019-07-17] MEDS: ALTACE PO SCH ×2 (08:08→20:05)
[2019-07-17] MEDS: ARIMIDEX PO SCH (08:08)
[2019-07-17] MEDS: LASIX IV SCH (08:09)
[2019-07-17] MEDS: ALDACTONE PO SCH (08:09)
[2019-07-17] MEDS: PEPCID PO SCH ×2 (08:09→20:05)
[2019-07-17] MEDS: ASPIRIN PO SCH (08:09)
[2019-07-17] MEDS: CORDARONE PO SCH (08:10)
--- NOTE | 2019-07-17 15:37 | CARDIOLOGY PROGRESS NOTE ---
DATE: 07/17/2019 CHIEF COMPLAINT: Shortness of breath. SUBJECTIVE: Ms. Ozuna is generally feeling better. Yesterday we did blood gases on room air. CO2 is 48, pH 7.45, and pO2 61. Saturation was 94.5%. The patient feels somewhat better in general. OBJECTIVE: Vital Signs: Blood pressure is 161/71, temperature 97.5, pulse 59, and respirations 19. General: She is awake, alert, oriented, and in no distress. HEENT: Unremarkable. Respiratory: Chest shows diminished breath sounds in the left base. The right lung sounds clear. Abdomen: Her abdomen is nontender. Extremities: The extremities show no obvious edema. Neurological: She follows commands and moves all extremities. IMPRESSION: 1. Patient who presented with increasing dyspnea and was found to have atelectasis and a pleural effusion on the left side of the chest. This is probably a postoperative complication related to her recent coronary artery bypass procedure. 2. 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 3. Paroxysmal atrial fibrillation status post percutaneous ablation and also intraoperative defibrillation. 4. History of hypertension. 5. History of diabetes mellitus type 2. RECOMMENDATIONS: At this time since the patient is doing better we are going to make adjustments to her medications. I will probably ask her to take a lower dose of metoprolol and also decrease her spironolactone and stop the Lasix. We will reset her visit with Dr. Ajit Durant in [place]. She was supposed to see him today. She will follow up at the office with Dr. Keith Toscano who is her regular pc network technician. cc: Carson Burt MD
--- NOTE | 2019-07-17 15:59 | PROGRESS NOTE ---
DATE: 07/17/2019 SUBJECTIVE: This morning Ms. Ozuna refers to just be feeling weak, tired, and she does not think that she can go home. OBJECTIVE: Vital signs: Blood pressure is 144/45, pulse of 55, respirations 20, temperature 97.9 degrees. General: Ms. Ozuna is a 74-year-old, elderly female. She was in bed, no distress. HEENT: Mucosa is slightly pale but anicteric and acyanotic. Neck: Supple. Chest: Good air entry bilaterally. There are still a few crackles posteriorly. Cardiovascular: Regular rate and rhythm. No murmurs. No rubs. No gallops. There is a sternotomy scar on the anterior chest wall. GI: Abdomen is soft, nontender. Bowel sounds present. Extremities: No pedal edema. LURER: Patient is awake, alert, and oriented. LABORATORY DATA: Chemistry was unremarkable. Glucose 145. CURRENT MEDICATIONS: Have all been reviewed. No changes. ASSESSMENT: 1. Dyspnea on presentation secondary to congestive heart failure exacerbation. 2. Fluid overload secondary to congestive heart failure. Improved on diuretic therapy. 3. Left lower lobe atelectasis on CT scan. We will continue with respiratory therapy's recommendations. The patient is also on incentive spirometer. 4. Severe uncontrolled hypertension, improving. 5. Diabetes mellitus. Controlled on insulin regimen. 6. Dyslipidemia. 7. Iron deficiency. Patient is getting iron infusion. 8. Hypokalemia, replaced. 9. Generalized weakness and deconditioning. The patient has been evaluated by physical therapy and she seems to be doing fairly okay. PLAN: So in general, I think Ms. Huffs blood pressures are a lot better controlled. Congestive symptoms seem to be improving. This morning she, however, feels very fatigued and tired. We are going to observe her overnight. She is getting iron infusion. We will re-evaluate her tomorrow and see how she is. cc: Nico Galvez MD
[2019-07-17] MEDS: XARELTO PO SCH (16:32)
[2019-07-17] MEDS: NEURONTIN PO SCH (20:05)
[2019-07-17] MEDS: LIPITOR PO SCH (20:05)
[2019-07-17] MEDS: TYLENOL PO PRN (20:06)
[2019-07-17] MEDS: XALATAN 0.005% OPH SOLN BOTH EYES SCH (20:07)
[2019-07-17] MEDS: LANTUS INSULIN SUBQ SCH (22:34)
[2019-07-17] MEDS: DUONEB (A & A) INH PRN (22:43)
[2019-07-18] MEDS: TYLENOL PO PRN (05:02)
[2019-07-18 06:19] LABS: CALCIUM 9.4 mg/dL (8.8-10.2); POTASSIUM 3.5 mmol/L (3.5-5.1)
[2019-07-18] MEDS: HUMULIN R SUBQ SCH ×2 (06:33→11:17)
[2019-07-18] MEDS ORDERED: POTASSIUM CHLORIDE 20% LIQUID PO ONE (07:35)
[2019-07-18] MEDS ORDERED: SAMSCA PO ONE (07:36)
[2019-07-18] MEDS: PEPCID PO SCH (08:56)
[2019-07-18] MEDS: ALTACE PO SCH (08:56)
[2019-07-18] MEDS: CORDARONE PO SCH (08:57)
[2019-07-18] MEDS: ASPIRIN PO SCH (08:57)
[2019-07-18] MEDS: TIMOPTIC 0.5% OPH SOLUTION BOTH EYES SCH (08:58)
[2019-07-18] MEDS: ARIMIDEX PO SCH (08:58)
[2019-07-18] MEDS: VENOFER 250 MG in NS 150 ML IV SCH (08:58)
[2019-07-18] MEDS: LOPRESSOR PO SCH (09:00)
--- NOTE | 2019-07-18 11:15 | CARDIOLOGY PROGRESS NOTE ---
DATE: 07/18/2019 CHIEF COMPLAINT: Shortness of breath. SUBJECTIVE: Mrs. Ozuna appears to be a little bit confused today. Her bedside nurse is concerned. The patient indeed appears to be slightly lethargic, although, she does follow commands. She is legally blind, however, she is able to follow commands and moving 4 extremities equally. PHYSICAL EXAMINATION: Vital signs: Today, blood pressure 137/55, pulse is 62, respirations 17, temperature 97.4. General: She is awake, in no distress. HEENT: Unremarkable. Chest: Sounds better than yesterday. Both lung clement are clear. Heart: Sounds are regular and rhythmic. I do not hear a gallop or murmur. Abdomen: Nontender. Extremities: Showed no edema. Neurologic exam: As I said, she does not seem to have a focal deficit other than she appears to be legally blind. BLOOD WORK: Sodium 133, potassium 3.5, BUN 18, creatinine 1.0. IMPRESSION: 1. Patient who has increasing dyspnea, elevated ProBNP, post open heart surgery. Likely diastolic heart failure. 2. 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 3. History of hypertension. 4. History of diabetes. 5. Hyponatremia. 6. Borderline hypokalemia. RECOMMENDATIONS: At this time, we are going to replace potassium. We will add tolvaptan 15 mg daily. I am going to check a ProBNP level. I would like to see her working with Physical Therapy and see in what kind of condition she has had before discharging her home. Her last chest x-ray was done on the and it showed the atelectatic/effusion change in the left lung. I will discuss the case with Dr. Galvez, who is the admitting doctor. cc: Carson Burt MD
[2019-07-18 12:31] VITALS: BP 152/65
[2019-07-19] MEDS ORDERED: ALDACTONE PO SCH (10:45)
--- NOTE | 2019-07-19 10:50 | DISCHARGE SUMMARY ---
ADMISSION DATE: 07/13/2019 DISCHARGE DATE: 07/18/2019 DISPOSITION: Home. FOLLOW-UP: 1. Dr. Jason Dunaway. 2. Dr. Keith Toscano. 3. Dr. Ajit Durant in [facility]. CONSULTATION DURING THIS ADMISSION: Cardiology was consulted; patient was seen by Dr. Burt. INVASIVE PROCEDURES DONE DURING THIS ADMISSION: None. IMAGING STUDIES OF SIGNIFICANCE: 1. A chest x-ray did show mixed changes from prior. 2. Echocardiogram showed an ejection fraction of 64%. No wall motion abnormality. 3. A CT scan of the chest showed interstitial pulmonary edema, mild collapse of the left lower lobe and lingula. 4. A repeat chest x-ray showed worsening left basilar effusion. ADMISSION DIAGNOSES: 1. Congestive heart failure exacerbation. 2. Coronary artery disease status post coronary artery bypass graft 5 weeks ago. 3. Paroxysmal atrial fibrillation on chronic anticoagulation with Xarelto. 4. Hypertension. DIAGNOSES AT THE TIME OF DISCHARGE: 1. Dyspnea on exertion on presentation secondary to congestive heart failure exacerbation. 2. Fluid overload secondary to congestive heart failure. 3. Left lower lobe atelectasis on CT scan. 4. Severe uncontrolled hypertension, improved. 5. Diabetes mellitus. 6. Dyslipidemia. 7. Normocytic anemia with iron deficiency. 8. Generalized weakness and deconditioning. 9. Hypokalemia, replaced. 10. History of coronary artery disease status post coronary artery bypass graft 5 weeks ago. DISCHARGE MEDICATIONS: 1. Gabapentin 100 mg p.o. at bedtime. 2. Xarelto 20 mg p.o. with supper. 3. Albuterol. 4. Anastrozole 1 mg p.o. daily. 5. Aspirin 325 p.o. daily. 6. Atorvastatin 40 mg p.o. daily. 7. Benzonatate. 8. Famotidine 40 mg p.o. b.i.d. 9. Glargine 10 units at bedtime. 10. Levaquin has been discontinued. 11. Methocarbamol 500 mg q. 6 hours. 12. Metoprolol-XL 100 mg b.i.d. 13. Trazodone 50 mg p.o. daily. 14. Amiodarone 200 mg p.o. b.i.d. 15. Spironolactone 25 mg p.o. q. 48 hours. 16. Ramipril 5 mg p.o. b.i.d. 17. Iron sulfate 325 p.o. daily. 18. Multivitamin. 19. Criselda-Colace 1 tablet b.i.d. PRESENTING COMPLAINT: Chest pressure and shortness of breath. HISTORY OF PRESENTING COMPLAINT: Ms. Ozuna is a 74-year-old female with a history of recent CABG about 5 weeks ago, who is supposed to follow up with Dr. Durant in [place], came to the emergency department because of shortness of breath. Upon presentation, she was found to have a blood pressure reading of 200/100. Pro-B was also elevated. She was thought to be in congestive heart failure. She was admitted for further medical care. HOSPITAL COURSE: Ms. Ozuna was admitted to [facility] under telemonitoring, was started on IV diuretic therapy, for which her congestive symptoms did improve. Ms. Ozuna was found to be extremely hypertensive, was started on multiple regimen of antihypertensive medication, and she did feel a lot better. She was seen by Cardiology (Dr. Burt) during the hospital course. Ms. Ozuna was also found to be iron deficient and was given a couple doses of IV Venofer. All her electrolyte abnormalities were all replaced. She was evaluated on 2 occasions by physical therapy, and per documentation she seems to show good maintained balance without any hand support. She also seems to have very good maintained balance in terms of static positioning, as well as static sitting and standing. Today Ms. Ozuna refers to be feeling a lot better. She still feels slightly tired, but she does have an appointment with Dr. Durant tomorrow at 10 and we prefer that she goes for that appointment. We think that clinically she is stable for discharge. Her blood pressures are a lot better, congestive symptoms are a lot better and iron has been replaced. All the discharge instructions have been discussed with her. She voiced understanding. TIME SPENT FOR DISCHARGE: 38 minutes. cc: MD Jason Leblanc MD Richard Clay Peter Johnson, MD
== END 2019-07-18 13:48 | disposition home health service (06) | DRG 292 ==
LOC: SUPCPDRO → ED 17:22 → SUATTDRO 23:26 → 2N 23:26
PROVIDERS: ATTEND Internal Medicine

== ENCOUNTER 2019-07-27 10:24 | Observation (INO) ==
--- NOTE | 2019-07-27 11:13 | EKG Report ---
Test Performed on : 07/27/2019 10:27:48 AM Test Reason : CP, SOB Blood Pressure : / mmHG Vent. Rate : 109 BPM Atrial Rate : 136 BPM P-R Int : 000 ms QRS Dur : 086 ms QT Int : 320 ms P-R-T Axes : 000 014 166 degrees QTc Int : 430 ms Atrial fibrillation. with rapid ventricular response. ST & T wave abnormality, consider inferolateral ischemia Abnormal ECG When compared with ECG of 17-JUL-2019 07:03, Atrial fibrillation. has replaced Sinus rhythm. Vent. rate has increased BY 52 BPM QT has shortened Unconfirmed Result
[2019-07-27 11:18] LABS: BASO# 0.05 X1000 (0.0-0.2); BASO% 0.5 % (0.0-0.8); EOS# 0.09 X1000 (0.0-0.7); EOS% 0.9 % (0.0-10.0); HEMATOCRIT 36.2 % (37.0-47.0); HEMOGLOBIN 11.7 g/dL (12.0-16.0); IMM GRAN# 0.03 X1000 (0.0-0.04); IMM GRAN% 0.3 % (0.0-0.5); LYMPH# 1.72 X1000 (1.2-3.4); LYMPH% 17.3 % (20.5-51.1); MCH 27.4 PG (27-31); MCHC 32.3 g/dL (33-37); MCV 84.8 FL (81-99); MONO# 0.81 X1000 (0.11-0.59); MONO% 8.1 % (1.7-9.3); MPV 9.8 FL (7.4-10.4); NEUT# 7.27 X1000 (1.4-6.5); NEUT% 72.9 % (42.2-75.2); PLT 325 X1000 (130-400); RBC 4.27 XMIL (4.2-5.4); RDW 16.2 % (11.5-14.5); WBC 9.97 X1000 (4.8-10.8)
--- NOTE | 2019-07-27 11:27 | Diag Imaging Result Doc PS360 ---
EXAM: CHEST-1 VIEW INDICATION: SOP, chest pressure TECHNIQUE: One view COMPARISON: 07/15/2019 FINDINGS: The lungs are grossly clear. The effusion on the left than on the previous study has grossly resolved by plain radiograph. There is no evidence of pneumothorax. There are stable CABG changes. The cardiomediastinal silhouette and central vasculature are unremarkable, otherwise. IMPRESSION: No evidence of acute pathology by plain radiograph. Electronically signed by Benjamin Cabrera 07/27/2019 11:25 AM
[2019-07-27 11:31] LABS: INR 1.9; PROTIME 22.2 Seconds (11.0-16.0)
[2019-07-27 11:32] LABS: PTT 37.2 Seconds (22.3-41.8)
[2019-07-27 11:53] LABS: ALB/GLOB RATIO 1.1; ALBUMIN 3.8 g/dL (3.5-5.0); CALCIUM 9.8 mg/dL (8.8-10.2); CREATININE 1.2 mg/dL (0.5-0.9); MAGNESIUM 1.4 mg/dL (1.5-2.7); POTASSIUM 4.9 mmol/L (3.5-5.1); TOTAL BILIRUBIN 0.42 mg/dL (0.20-1.00); TOTAL PROTEIN 7.2 g/dL (6.3-8.3)
--- NOTE | 2019-07-27 12:59 | PROVIDER DOCUMENTATION ---
This chart was entered by Stacey Harris Scribe, acting as scribe for Bhavin Baig MD. HPI-General Adult - General Chief Complaint: Chest Pain Stated Complaint: WEAKNESS Time Seen by Provider: 07/27/19 10:28 Source: patient Allergies/Adverse Reactions: Patient Allergies Allergy/AdvReac Type Severity Reaction Status Date / Time hydrochlorothiazide Allergy Unknown Verified 07/13/19 17:50 [From Dyazide] triamterene [From Dyazide] Allergy Unknown Verified 07/13/19 17:50 Home Medications: Home Medication List Medication Instructions Recorded Confirmed Last Taken Type Timolol 0.5% Oph Solution 1 drop BOTH EYES BID 04/11/18 07/27/19 04/11/18 21:00 History [Timoptic 0.5% Oph Solution] Gabapentin [Neurontin] 100 mg PO QHS capsule 04/13/18 07/27/19 Unknown Rx Rivaroxaban [Xarelto] 20 mg PO WSUPPER #30 tab 04/13/18 07/27/19 Unknown Rx ATORVAstatin [Lipitor] 1 tab PO QHS 07/13/19 07/27/19 Unknown History Albuterol 2.5MG/Ipratrop 0.5MG 1 inh INH PRN PRN 07/13/19 07/27/19 Unknown History [Duoneb (A & A)] Amiodarone [Cordarone] 1 tab PO BID 07/13/19 07/27/19 Unknown History Anastrozole 1 tab PO DAILY 07/13/19 07/27/19 Unknown History Benzonatate 1 cap PO TID 07/13/19 07/27/19 Unknown History Budesonide [Pulmicort] 1 inh INH PRN PRN 07/13/19 07/27/19 Unknown History Famotidine 2 tab PO BID 07/13/19 07/27/19 Unknown History Hydrocodone/Acetaminophen 1 tab PO Q4H PRN 07/13/19 07/27/19 Unknown History [Hydrocodone-Acetamin 5-325 mg] Insulin Glargine,Hum.rec.anlog 10 units SQ QHS 07/13/19 07/27/19 Unknown History [Lantus Solostar] Latanoprost 0.005% Oph Soln 1 drp BOTH EYES HS 07/13/19 07/27/19 Unknown History [Xalatan 0.005% Oph Soln] Methocarbamol 1 tab PO Q6H 07/13/19 07/27/19 Unknown History Metoprolol Succinate E.r. [Toprol 1 tab PO BID 07/13/19 07/27/19 Unknown History Xl] Ondansetron HCl [Zofran] 1 tab PO PRN PRN 07/13/19 07/27/19 Unknown History Trazodone [Desyrel] 1 tab PO QHS 07/13/19 07/27/19 Unknown History Aspirin 81 mg PO DAILY chewtab 07/18/19 07/27/19 Unknown Rx Ferrous Sulfate [Iron] 325 mg PO BID #120 tab 07/18/19 07/27/19 Unknown Rx Iron/Calcium/E/Folic Acid/Mvit 1 ea PO DAILY #120 tab 07/18/19 07/27/19 Unknown Rx [Vitafol Caplet] RAMIpril [Altace] 5 mg PO BID #120 cap 07/18/19 07/27/19 Unknown Rx Sennosides/Docusate Sodium 1 ea PO BID #180 tab 07/18/19 07/27/19 Unknown Rx [Pericolace] Spironolactone [Aldactone] 25 mg PO Q48H #60 tab 07/18/19 07/27/19 Unknown Rx - History of Present Illness -Gen Adult Nature of Presenting Problems: 74yof presents to ED by EMS cc generalized weakness, especially in arms and legs and SOB since last night. Pt reports she does have some chest pressure but no pain, pounding feeling in heart that is intermittent and diarrhea but thinks it's due to all the meds she is on. Pt denies fever, chills, nausea and vomiting. Pt has hx of HTN, IDDM, AFIB and CABAG in 05/2019. Location of Pain/Injury: reports: generalized Quality of Pain: reports: other (weakness) Severity: reports: mild Onset/Duration: reports: last night Timing: reports: still present Context/Activities at Onset: reports: light activity Modifying Factors: improves with: nothing Associated Symptoms: reports: diarrhea, fatigue, shortness of breath, weakness. denies: fever/chills, nausea, vomiting Similar Symptoms Previously?: Yes Recently seen or treated by another doctor?: Yes (07/12/19 seen in ED) Review of Systems - Adult - REVIEW OF SYSTEMS - ADULT Constitutional: reports: see HPI, fatique. denies: chills, fever Eyes: reports: no symptoms reported Ears, Nose, Mouth & Throat: reports: no symptoms reported Cardiovascular: reports: see HPI, palpitations, other (chest pressure). denies: chest pain, edema Respiratory: reports: see HPI, shortness of breath. denies: cough Gastrointestinal: reports: see HPI, diarrhea. denies: nausea, vomiting Genitourinary: reports: no symptoms reported Musculoskeletal: reports: no symptoms reported Integumentary: reports: no symptoms reported Neurological: reports: no symptoms reported Psychiatric: reports: no symptoms reported Endocrine: reports: no symptoms reported Hematologic/Lymphatic: reports: no symptoms reported Allergic/Immunologic: reports: no symptoms reported All Other Systems: Reviewed and Negative Past History - Adult - PAST MEDICAL HISTORY-ADULT Review of Records: reports: Nursing Assessment Review, Medications Reviewed, Social history reviewed & non-contributory. Major Childhood Illnesses: reports: denies history Cardiovascular: reports: HTN Respiratory: reports: denies history Gastrointestinal: reports: GERD Obstetrical/Gynecological: reports: denies history Genitourinary: reports: denies history Musculoskeletal: reports: denies history Neurological: reports: denies history Psychiatric: reports: denies history Endocrine/Immune: reports: Diabetes Other Conditions: reports: other (sleep apnea) - PRIOR SURGERIES/PROCEDURES Surgical/Procedure History: reports: reviewed, not pertinent, colonoscopy, CABG, hysterectomy, other (cataract removal) - IMMUNIZATION STATUS Childhood Immunizations: See Nurse Assessment Flu Vaccine: See Nurse Assessment - FAMILY HISTORY Family History: reviewed, not pertinent - SOCIAL HISTORY Smoking: denies Physical Exam-General - PHYSICAL EXAM-ADULT Initial Vital Signs Reviewed: Yes - CONSTITUTIONAL General Appearance: appears well, alert, no apparent distress. negative: anxious, combative - EYES Eyes: PERRL/EOMI, pink conjunctivae. negative: photophobia - HEAD, EARS, NOSE, MOUTH & THROAT HENMT: moist mucous membranes. negative: angioedema - RESPIRATORY Respiratory: chest non-tender, lungs clear, normal breath sounds. negative: stridor, wheezing - CARDIOVASCULAR Cardiovascular: normal peripheral pulses, no edema, tachycardia. negative: regular rate, rhythm (regularly, irregular), bradycardia - GASTROINTESTINAL (ABDOMEN) Abdominal Exam: soft, tenderness (LLQ and RLQ, mild). negative: non tender - MUSCULOSKELETAL Back Exam: normal inspection, no CVA tenderness, no vertebral tenderness Extremity: normal inspection. negative: deformity - SKIN Integumentary: normal color. negative: diaphoresis, ecchymosis - PSYCHIATRIC Psych/Mental Status: normal mood/affect, oriented x 3. negative: anxious, d isheveled Progress - PLAN OF CARE/RESULTS Progress/Plan/Lab Results: Vital Signs - 8 hr 07/27/19 10:26 Temperature 97.7 F Pulse Rate 105 H Respiratory Rate 18 Blood Pressure 125/62 O2 Sat by Pulse Oximetry 100 Result Diagrams: 07/27/19 10:44 07/27/19 10:44 - EKG 1 Time of EKG reading by physician:: 10:45 EKG Read and Signed by:: Bhavin Baig EKG Interpretation (*Must complete 3 of following elements*): Abnormal (consider inferolateral ischemia) Rate: 109 Rhythm: afib w/rvr [place]: normal ST Wave: non-specific ST changes - XRAY 1 XRAY: Bilateral XRAY Study: Chest Impression: See EMR Report (IMPRESSION: No evidence of acute pathology by plain radiograph. Electronically signed by Benjamin Cabrera 07/27/2019 11:25 AM) - CONSULTS/PCP/HOSPITALIST Notification #1 *Consult/PCP/Hospitalist*: Dr. Armando Time Discussed: 12:49 Consult Disposition: Admit (accepted pt) Departure - Departure Date of Disposition Decision: 07/27/19 Time of Disposition Decision: 11:31 DIAGNOSIS: Weakness, JACK (acute kidney injury), Acidosis Disposition: ADMITTED INPATIENT 09 Certified Medical Emergency: Emergent Condition: Stable Additional Freetext Instructions: ED Follow Up Instructions: You have been treated by a care provider in the Emergency Department. These instructions are being provided to you so you can have an understanding of how to care for yourself upon discharge. Upon discharge from the Emergency Department, you are responsible for making arrangements for follow-up care by a physician of your choice. Take all prescribed medications as directed. Return to the Emergency Department immediately for any new or worsening symptoms. You may call the Physician Referral phone number at [phone] to obtain a list of Physicians who are taking new patients. Referrals and Follow-Ups: Jason Dunaway MD [Primary Care Provider] - - Critical Care Note This patient required my direct & personal management of CC.: No Attestation - Physician/ CHRIS Attestation Patient care was provided by Advanced Practice Provider:: No The physician spent face to face time with patient:: Yes Advanced Practice Provider documentation review:: Supervising physician onsite and consulted in the evaluation and care of this patient. The physician did have a face to face encounter with the patient. This chart was documented by the indicated scribe, (Stacey Harris Scribe) and accurately reflects the services I performed and decisions made by me, Bhavin Baig MD, as attested by the provider's signature.
[2019-07-27 13:06] LABS: ALLEN TEST YES; BE -4.1 mmoll (-3.0-3.0); BLOOD TYPE ARTERIAL; HCO3-(ACT) 21.7 mmoll (20.0-26.0); METHB 0.8 % (0.0-1.5); O2(CT) 15.9 mL/dL (15.0-23.0); O2HB 96.1 % (95.0-99.0); PCO2(98.6) 31 mmHg (35-45); PO2(98.6) 93 mmHg (60-100); SAMPLE BLOOD; SAO2 98.8 % (95.0-100.0); THB 11.7 g/dL (11.5-17.4); pH(98.6) 7.41 (7.35-7.45)
[2019-07-27 13:07] LABS: MODALITY ROOM AIR
[2019-07-27] MEDS ORDERED: ZOFRAN IV PRN (14:27)
[2019-07-27] MEDS ORDERED: NITROGLYCERIN SL PRN (14:27)
[2019-07-27] MEDS ORDERED: MAGNESIUM SULFATE 1 GM/D5W 1 GM/100 ML IVPB IV ONE (14:31)
[2019-07-27] MEDS ORDERED: NORCO-5 PO PRN (14:32)
[2019-07-27] MEDS ORDERED: ALDACTONE PO SCH (14:45)
[2019-07-27] MEDS: XARELTO PO SCH (16:19)
[2019-07-27] MEDS: ROBAXIN PO SCH ×2 (16:19→20:31)
[2019-07-27] MEDS: HUMULIN R SUBQ SCH ×2 (16:28→20:32)
--- NOTE | 2019-07-27 16:45 | HISTORY AND PHYSICAL ---
ROOFING SALES REPRESENTATIVE: Dr. Keith Toscano CHIEF COMPLAINT: Weakness. HISTORY OF PRESENT ILLNESS: Ms. Caitie Ozuna is a 74-year-old female. Ms. Ozuna states that she has been having increasing weakness, chest pressure and tightness and shortness of breath. She started having the shortness of breath last P.M. and she has been having severe weakness for the past few days, and chest pressure and tightness for the past few days. The patient states that this morning she was having difficulty getting out of bed. Her home health nurse visited her house and encouraged her to come to the hospital at that time. The patient describes her chest tightness as a heaviness and feels like something is sitting on her chest. She states the pain comes and goes. Upon inspection, she does have a midline incision down her sternum from a recent CABG in May 2019. Chest is not tender to the touch. She states that she does have shortness of breath, but that she does not have pain with her shortness of breath. The patient does also state that she has been having increasing numbness in her right middle fingers and in her bilateral feet. The patient also describes a 20-pound weight loss over the past month. The patient was recently admitted in the hospital and was discharged on 07/18/2019. She was in the hospital for congestive heart failure and was seen by Cardiology. The patient is denying any other symptoms at this time. Creatinine on this visit was 1.2. On 07/18/2019, it was 1.0. Sodium on this visit is 135. On 09/25, it was 133. ProBNP on this visit is 1431. On 07/18/2019, it was 816. Chest x-ray shows no evidence of acute pathology. Troponin is less than 0.01. EKG shows atrial fibrillation at a rate of 109. PAST MEDICAL HISTORY: Coronary artery disease status post coronary artery bypass graft by Dr. Durant at [facility] in May 2019. Paroxysmal atrial fibrillation, on chronic ventricular coagulation with Xarelto, hypertension, hyperlipidemia, diabetes mellitus, asthma, iron deficiency, anemia, unknown congenital heart anomaly. History of malignant neoplasm of the left breast status post lumpectomy and radiation. Sarcoma, vertigo. PAST SURGICAL HISTORY: Coronary artery bypass graft in May 2019, bilateral cataract surgery, cardiac ablation, rhinoplasty, right arm surgery x3 secondary to fractures, right ankle surgery, hysterectomy, lumpectomy. FAMILY HISTORY: Her mother was positive for having history of lung cancer, diabetes mellitus and hypertension. Her father had a history of renal cell carcinoma, diabetes, heart disease and hypertension. She has 1 brother who has a history of prostate cancer. SOCIAL HISTORY: The patient denies any history of alcohol, tobacco, or illicit drug use. She lives by herself at the assisted living facility. ALLERGIES: Hydrochlorothiazide and triamterene. HOME MEDICATIONS: 1. Timoptic 1 drop to both eyes b.i.d. 2. Neurontin 100 mg p.o. at bedtime. 3. Xarelto 20 mg p.o. with supper. 4. DuoNeb LYNDSEY 1 inhaled p.r.n. 5. Anastrozole 1 mg p.o. daily. 6. Atorvastatin 40 mg p.o. at bedtime. 7. Tessalon Perles 100 mg p.o. t.i.d. 8. Famotidine 20 mg 2 tabs p.o. b.i.d. 9. Hydrocodone acetaminophen 5/325 one tablet p.o. q.4 hours p.r.n. 10. Lantus 10 units subcu at bedtime. 11. Methocarbamol 500 mg p.o. q.6 hours. 12. Metoprolol succinate 100 mg p.o. b.i.d. 13. Zofran 4 mg 1 tablet p.o. p.r.n. 14. Desyrel 50 mg p.o. at bedtime. 15. Amiodarone 200 mg p.o. b.i.d. 16. Pulmicort 0.5 mg 1 inhaled p.r.n. 17. Xalatan eyedrops 1 drop to both eyes at bedtime. 18. Spironolactone 25 mg p.o. q.48 hours. 19. Altace 5 mg p.o. b.i.d. 20. Aspirin 81 mg p.o. daily. 21. Ferrous sulfate 325 mg p.o. b.i.d. 22. Multivitamin with iron 1 tablet p.o. daily. 23. Criselda Colace 1 tablet p.o. b.i.d. LABS AND DIAGNOSTICS: White blood cell count 9.97, red blood cell count 4.27, hemoglobin 11.7, hematocrit 36.2, platelet count 325,000. PT 22.2, INR 1.9, PTT 37.2. PH 7.41, pCO2 231, PO2 is 93, bicarbonate 21.7, oxyhemoglobin is 96.1, O2 saturations 98.8. Sodium is 135, potassium is 4.9, chloride 100, carbon dioxide 17, anion gap 18, BUN is 25, creatinine is 1.2, GFR is 44, glucose 170, calcium 9.8, magnesium 1.4, bilirubin 0.4, AST is 20, ALT is 10, alkaline phosphatase 87. Troponin less than 0.01, proBNP is 1431. Plasma lactate 1.2. Chest x-ray shows no evidence of acute pathology. EKG shows atrial fib with a rate of 109 beats per minute. REVIEW OF SYSTEMS: A 12 point review of systems has been obtained and are negative except what is stated above in the HPI. PHYSICAL EXAMINATION: VITAL SIGNS: Temperature 97.7 degrees, pulse rate 103, blood pressure 125/62, respiratory rate 14, O2 saturation 98% on room air. Weight 175 pounds, height 5 feet 7 inches. GENERAL: This is a 74-year-old female. She is lying in the ER stretcher. She is in no acute distress. She is well nourished and well developed. HEENT: Atraumatic, normocephalic. Pupils equal, round, reactive to light. Sclerae anicteric. Mucous membranes are moist. NECK: Supple. No lymphadenopathy. Trachea is midline. No JVD. No thyromegaly. No bruits. CARDIOVASCULAR: Irregular rate and rhythm. No murmurs, gallops, or rubs appreciated. RESPIRATORY: Lung sounds are clear with equal chest excursion. Respirations are nonlabored with no accessory muscle usage. GASTROINTESTINAL: Abdomen is soft, nontender, nondistended. Bowel sounds are present x4. NEUROLOGIC: Cranial nerves 2-12 are intact. The patient is awake, alert, oriented, able to follow all commands appropriately. MUSCULOSKELETAL: Full strength noted. No abnormalities. No deformities. EXTREMITIES: No clubbing, no cyanosis, no edema. DP and PT pulses are present and palpable. SKIN: Warm, dry, and intact. No rashes. No bruises. There is a midline incision noted from surgery from May. It is closed. There is no edema noted around the incision. There is also a very small incision noted to the anterior surface of the left knee. It is also closed. ASSESSMENT AND PLAN: 1. Chest pain. We will admit this patient to the medical floor. We are going to trend this patient's CK and troponins. Repeat EKG in the morning. I have placed this patient on spindle carver and rule her out for acute coronary syndrome. 2. Atrial fibrillation. Patient is does have chronic atrial fibrillation. Her rate is about 100. Patient does take amiodarone at home. We are going to continue her home dose amiodarone and also continue her on her Xarelto. Also, we are going to place her on spindle carver and we will repeat her EKG in the morning. 3. Diabetes mellitus. We are going to continue her home diabetic medications. We are also going to be checking her fingersticks before meals and at bedtime. We are going to provide her with sliding scale insulin as needed and place her on a diabetic diet. 4. Hypertension. The patient does take several medications at home for her hypertension. We are going to continue all these home medications. 5. Coronary artery disease. The patient had a coronary artery bypass graft back in May this year. We are going to continue all her heart medications and place her on spindle carver. We are going to rule her out for any acute coronary processes. This patient just had an echo done on last admission on 07/14/2019. I do not see any need to repeat the echo at this time. The EF did show to be about around 64% at that time. If any of her laboratory findings come back to be positive, we will consult Cardiology. She does see Dr. Keith Toscano for cardiology. 6. Hyperlipidemia. She is on some home medication for her high cholesterol, so we will continue these medications. 7. Hypomagnesemia. I am going to replace her magnesium with 1 g IV magnesium and repeat her labs in the morning to recheck. I have admitted this patient to the medical floor and placed her on spindle carver. We will repeat her labs in the morning. I am going to replace her magnesium. I am going to trend her CK and troponins and repeat her EKG in the morning. We are going to rule her out for acute coronary syndrome and all other further recommendations and treatment pending hospital course and lab data. Dictated by DREAD Lentz for Jacqueline Kay MD cc: MD Jason Ramirez MD Peter Johnson, MD I performed a face to face encounter on the patient. I reviewed all labs and imaging on the patient. I agree with the H&P as dictated. [facility]
[2019-07-27] MEDS: TYLENOL PO PRN (17:30)
[2019-07-27] MEDS: PULMICORT INH PRN (20:03)
[2019-07-27] MEDS: DUONEB (A & A) INH PRN ×2 (20:03→23:03)
[2019-07-27] MEDS: FERROUS SULFATE PO SCH (20:31)
[2019-07-27] MEDS: CORDARONE PO SCH (20:31)
[2019-07-27] MEDS: TOPROL XL PO SCH (20:31)
[2019-07-27] MEDS: DESYREL PO SCH (20:31)
[2019-07-27] MEDS: LIPITOR PO SCH (20:31)
[2019-07-27] MEDS: NEURONTIN PO SCH (20:32)
[2019-07-27] MEDS: PEPCID PO SCH (20:32)
[2019-07-27] MEDS: LANTUS INSULIN SUBQ SCH (20:32)
[2019-07-27] MEDS: PERICOLACE PO SCH (20:32)
[2019-07-27] MEDS: TIMOPTIC 0.5% OPH SOLUTION BOTH EYES SCH (20:32)
[2019-07-27] MEDS: XALATAN 0.005% OPH SOLN BOTH EYES SCH (20:33)
[2019-07-27] MEDS ORDERED: ALTACE PO SCH (21:00)
[2019-07-28] MEDS: ROBAXIN PO SCH ×4 (02:43→20:52)
[2019-07-28 06:03] LABS: HEMATOCRIT 33.8 % (37.0-47.0); HEMOGLOBIN 10.9 g/dL (12.0-16.0); MCH 27.7 PG (27-31); MCHC 32.2 g/dL (33-37); PLT 324 X1000 (130-400); RBC 3.93 XMIL (4.2-5.4); RDW 16.3 % (11.5-14.5); WBC 11.21 X1000 (4.8-10.8)
[2019-07-28 06:04] LABS: BASO# 0.04 X1000 (0.0-0.2); BASO% 0.4 % (0.0-0.8); EOS# 0.15 X1000 (0.0-0.7); EOS% 1.3 % (0.0-10.0); IMM GRAN# 0.03 X1000 (0.0-0.04); IMM GRAN% 0.3 % (0.0-0.5); LYMPH# 1.69 X1000 (1.2-3.4); LYMPH% 15.1 % (20.5-51.1); MONO# 0.75 X1000 (0.11-0.59); MONO% 6.7 % (1.7-9.3); MPV 9.8 FL (7.4-10.4); NEUT# 8.55 X1000 (1.4-6.5); NEUT% 76.2 % (42.2-75.2)
--- NOTE | 2019-07-28 06:08 | EKG Report ---
Test Performed on : 07/28/2019 05:53:26 AM Test Reason : chest pain Blood Pressure : / mmHG Vent. Rate : 064 BPM Atrial Rate : 064 BPM P-R Int : 154 ms QRS Dur : 088 ms QT Int : 474 ms P-R-T Axes : 058 012 127 degrees QTc Int : 489 ms Normal sinus rhythm. ST & T wave abnormality, consider anterolateral ischemia Prolonged QT Abnormal ECG When compared with ECG of 27-Jul-2019 No significant change was found Confirmed by Marshall ESQUEDA, Arnoldo Jones ([id number]) on 07/31/2019 1:00:13 PM
[2019-07-28 06:20] LABS: HEMOGLOBIN A1C 6.2 % (4.8-6.0)
[2019-07-28] MEDS: HUMULIN R SUBQ SCH ×4 (06:21→20:53)
[2019-07-28 06:28] LABS: AGAP 17; BUN 29 mg/dL (8-22); CALCIUM 9.4 mg/dL (8.8-10.2); CHLORIDE 99 mmol/L (98-107); CHOLESTEROL 98 mg/dL (0-200); COSMO 278; CREATININE 1.6 mg/dL (0.5-0.9); ESTIMATED GFR 32; GLUCOSE 177 mg/dL (70-104); HDL 32 mg/dL (45-65); LDL 37 mg/dL; MAGNESIUM 1.7 mg/dL (1.5-2.7); POTASSIUM 4.3 mmol/L (3.5-5.1); SODIUM 134 mmol/L (136-145); TCO2 18 mmol/L (25-35); TOTAL IRON 58 ug/dL (49-151); TRIGLYCERIDES 147 mg/dL (35-135); VLDL 29 mg/dL
[2019-07-28] MEDS: NS 1,000 ML IV SCH ×2 (06:40→23:30)
[2019-07-28 06:48] LABS: TSH 2.03 uIUmL (0.27-4.20)
[2019-07-28] MEDS ORDERED: PRILOSEC PO SCH (07:00)
[2019-07-28] MEDS: PULMICORT INH PRN ×2 (07:33→19:46)
[2019-07-28] MEDS: DUONEB (A & A) INH PRN ×3 (07:33→23:24)
--- NOTE | 2019-07-28 08:51 | Diag Imaging Result Doc PS360 ---
EXAM: US RENAL 2 (RETROPER) COMPLETE 07/28/2019 HISTORY: isha on ckd TECHNIQUE: Renal ultrasound COMMENT: There is no evidence of hydronephrosis. There is a heterogeneously hyperechoic mass in the lower pole of the left kidney measuring 2.5 cm in greatest dimension. The urinary bladder is not distended. There is some sediment in the bladder. There are no previous CT or ultrasound examinations. IMPRESSION: Solid mass in the left lower pole. This may represent an angiomyolipoma given its relatively hyperechoic appearance. Further evaluation with CT is recommended. Electronically signed by Kalin Baxter 07/28/2019 8:49 AM
[2019-07-28] MEDS: PERICOLACE PO SCH ×2 (10:07→20:52)
[2019-07-28] MEDS: TIMOPTIC 0.5% OPH SOLUTION BOTH EYES SCH ×2 (10:07→20:52)
[2019-07-28] MEDS: PEPCID PO SCH (10:08)
[2019-07-28] MEDS: ASPIRIN PO SCH (10:08)
[2019-07-28] MEDS: CENTRUM SILVER PO SCH (10:08)
[2019-07-28] MEDS: FERROUS SULFATE PO SCH ×2 (10:08→20:52)
[2019-07-28] MEDS: CORDARONE PO SCH ×2 (10:10→20:52)
[2019-07-28] MEDS: ARIMIDEX PO SCH (10:16)
[2019-07-28] MEDS: TOPROL XL PO SCH ×2 (10:17→20:52)
[2019-07-28] MEDS: PROTONIX IV SCH (11:48)
--- NOTE | 2019-07-28 16:20 | PROGRESS NOTE ---
DATE: 07/28/2019 SUBJECTIVE: The patient is resting comfortably. She states that for the last 3 weeks she has had a very poor appetite and has been having persistent nausea. She also reports intermittent diarrhea. However, she states that yesterday she had a soft bowel movement. OBJECTIVE: Vital Signs: Temperature 98 degrees, blood pressure 115/51, heart rate 63, respirations 20, O2 saturations 100% on room air. General: The patient is resting comfortably in bed. No acute events noted overnight. Head: Normocephalic, atraumatic. Heart: S1, S2 normal. Regular rate and rhythm. Lungs: Clear to auscultation bilaterally. Abdomen: Positive bowel sounds. Soft, nontender, nondistended. Extremities: No edema, no cyanosis. Neurologic: The patient is alert and oriented x4. LABS: White blood cell count 11, hemoglobin 10, hematocrit 33, platelets 324. Sodium 134, potassium 4.3, chloride 99, CO2 18. BUN 29, creatinine 1.6, glucose 177. Hemoglobin A1c 6.2, magnesium 1.7. ASSESSMENT AND PLAN: 1. Acute kidney injury. The patient has been started on normal saline. The urine studies are currently pending. The renal ultrasound is showing a solid mass in the left lower pole of the kidney. Further CT evaluation is recommended. The patient will likely require contrasted CT once her renal function has improves. We will monitor the urine output closely. 2. Status post coronary artery bypass graft 2 months ago. Continue on the current cardiac medications. 3. Obesity. Aware. 4. Persistent nausea with poor appetite. We will start with an abdominal x-ray and consult Gastroenterology. The patient states that she has been taking Pepto-Bismol for stomach upset for the last several weeks. We will start the patient on intravenous Protonix. 5. Diabetes mellitus type 2. Continue on sliding scale insulin. 6. Deep vein thrombosis prophylaxis. Will start the patient on heparin. 7. Consult PT. cc: MD MAYRA Ramirez
[2019-07-28] MEDS: XARELTO PO SCH (16:21)
--- NOTE | 2019-07-28 16:37 | GASTROENTEROLOGY CONSULTATION ---
DATE: 07/28/2019 CONSULTING PHYSICIAN: Dr. Kay. REASON FOR CONSULTATION: Nausea and vomiting. HISTORY: This is a 74-year-old white female, a diabetic with coronary artery disease, who had a coronary artery bypass graft done a few weeks ago, has been living in an assisted living place. She was brought into the hospital after she complained of nausea and weakness to her home healthcare nurse. She tells me that for the past few days she has been feeling lethargic and weak and has had some nausea. Occasionally she has had postprandial vomiting. She feels bloated. She denied any constipation. She has good bowel movement. Has had occasional loose stool as well, but denies any blood or mucus in her stool. She has not had any hematemesis or coffee-ground emesis. Because of the postprandial symptoms, she has not been eating well and has been feeling weak. She denied any fever or chills, has had no headache or dizziness or double vision. Denies any chest pain or shortness of breath or palpitations. Denies any cough, sputum, hemoptysis. Has had no dysuria, polyuria or hematuria. PAST MEDICAL HISTORY: Significant for diabetes, hypertension, hyperlipidemia, chronic atrial fibrillation, history of coronary disease status post coronary bypass graft, history of breast CA status post lumpectomy and radiation therapy. PAST SURGICAL HISTORY: She has had lumpectomy, hysterectomy, ankle surgery. Also had history of cataract surgery. Coronary bypass graft as mentioned above. SOCIAL HISTORY: She is a and lives by herself at an assisted living facility. Does not smoke. Does not drink. Does not do illicit drugs. FAMILY HISTORY: Noncontributory. REVIEW OF SYSTEMS: As per HPI above. MEDICATIONS: Prior to hospitalization, she has been on Cordarone, Anastrozole, aspirin, Lipitor, benzonatate, Pulmicort, famotidine, iron, Neurontin, hydrocodone with acetaminophen, insulin, Xalatan, methocarbamol, metoprolol, Zofran, Altace, Xarelto, Criselda-Colace, Aldactone and Desyrel. ALLERGIES: Allergic to Dyazide. PHYSICAL EXAMINATION: General: On examination, a very pleasant white female. She is overweight, lying in bed. She is conscious, alert, appears to be in no distress. Vitals: Temperature 98.0 degrees, pulse 63 per minute, breathing 20, blood pressure 115/51. HEENT: Head is atraumatic, normocephalic. Eyes: Conjunctivae normal. Sclerae anicteric. Nares are patent. No discharge. Mouth: Buccal mucosa is moist. Throat is normal. Neck: Neck is supple. No lymphadenopathy or thyromegaly. Chest: Bilaterally symmetrical. It is moving with respirations. Breath sounds audible bilaterally. No rhonchi or crepitations could be heard. Heart: Audible. No murmur could be appreciated. Abdomen: Full. It is soft. It is nontender. I could not appreciate any mass or visceromegaly. No ascites noted. Bowel sounds are audible. Extremities: No pedal edema, cyanosis, clubbing was noted. KNOCKUP WORKER: Grossly intact. No sensory or motor deficit. LABORATORIES: Reviewed which showed WBC of 11.21, hemoglobin 10.9, hematocrit 33.8, MCV 86.0, platelets were 324. PT was 22.2, INR 1.90, PTT 37.2. Sodium 134, potassium 4.3, chloride 99, bicarbonate is 18. BUN is 29, creatinine 1.6. Transaminases are normal. IMPRESSION: This is a 74-year-old white female with multiple medical problems, including diabetes, coronary artery disease status post recent coronary artery bypass graft and history of chronic atrial fibrillation on chronic anticoagulation, has presented with dyspepsia and nausea, occasional vomiting. The differential diagnosis for her symptoms could be diabetic gastroparesis. She has been iatrogenic secondary to medication. She is on multiple medications; nausea is 1 of the major side effects to that. Her symptoms could be related to stress ulcer too. She has been on famotidine for peptic ulcer disease or stress ulcer is a possibility as well or the combination of above could be the real cause of her symptoms, but since her admission she tells me for the past couple days she has been feeling much better and stronger. She is about to go for physical therapy. She was able to finish her lunch today and tolerated it well. She did not have any nausea or vomiting after her lunch. At this point, I would recommend to start her on a PPI instead of H 2 receptor antagonist and need to really look at her polypharmacy, and may need to address her medication that could be symptomatic. I do not think we need to proceed with any endoscopic evaluation. At this point, she is on a blood thinner and has had recent cardiac surgery and she carries high risk. I will proceed with endoscopy only if really needed. In the meantime, continue symptomatic treatment. Continue to get her up and about and strict glycemic control with more emphasis should be on her polypharmacy. cc: Jace Burgos MD
--- NOTE | 2019-07-28 16:55 | Diag Imaging Result Doc PS360 ---
EXAM: ABDOMEN FLAT/UPRIGHT 07/28/2019 HISTORY: nausea/vomiting TECHNIQUE: Flat and upright abdomen COMMENT: There is gas and some fecal debris throughout the colon. There is no evidence of dilatation. The stomach and small bowel are not distended. There is no evidence of organomegaly or mass. IMPRESSION: Nonspecific abdomen. No evidence of obstruction. Electronically signed by Kalin Baxter 07/28/2019 4:52 PM
[2019-07-28 18:00] LABS: URINE SOURCE CLEAN CATCH
[2019-07-28 18:06] LABS: BILIRUBIN URINE NEGATIVE (NEGATIVE); BLOOD URINE SMALL (NEGATIVE); COLOR ORANGE; GLUCOSE URINE NEGATIVE (NEGATIVE); KETONE URINE NEGATIVE (NEGATIVE); LEUKOCYTES URINE LARGE (NEGATIVE); NITRITE URINE NEGATIVE (NEGATIVE); PH URINE 5.5; PROTEIN URINE 70 mg/dL (NEGATIVE); SP GRAVITY URINE 1.016; TURBIDITY URINE TURBID (CLEAR); UROBILINOGEN URINE NORMAL (NORMAL)
[2019-07-28 18:11] LABS: UR EPITHELIAL CELLS <10 /HPF (<10); URINE BACTERIA 4+ /HPF; URINE WBC TNTC /HPF (<10)
[2019-07-28 18:15] LABS: UR CREAT RANDOM 97.3 mg/dL (11-20); UR PROT RANDOM 88.8 mg/dL
[2019-07-28 18:20] LABS: URINE CASTS NONE SEEN; URINE CRYSTALS NONE SEEN; URINE YEAST NONE SEEN
[2019-07-28] MEDS: DESYREL PO SCH (20:52)
[2019-07-28] MEDS: TYLENOL PO PRN (20:52)
[2019-07-28] MEDS: LIPITOR PO SCH (20:52)
[2019-07-28] MEDS: XALATAN 0.005% OPH SOLN BOTH EYES SCH (20:52)
[2019-07-28] MEDS: NEURONTIN PO SCH (20:53)
[2019-07-28] MEDS: LANTUS INSULIN SUBQ SCH (20:53)
[2019-07-29] MEDS: ROBAXIN PO SCH ×4 (02:10→20:06)
[2019-07-29 05:35] LABS: BASO% 0.4 % (0.0-0.8); EOS% 2.4 % (0.0-10.0); HEMATOCRIT 31.2 % (37.0-47.0); HEMOGLOBIN 9.8 g/dL (12.0-16.0); IMM GRAN% 0.3 % (0.0-0.5); LYMPH# 1.65 X1000 (1.2-3.4); MCH 27.3 PG (27-31); MCHC 31.4 g/dL (33-37); MCV 86.9 FL (81-99); MONO% 6.5 % (1.7-9.3); MPV 9.8 FL (7.4-10.4); NEUT# 5.13 X1000 (1.4-6.5); NEUT% 68.4 % (42.2-75.2); PLT 252 X1000 (130-400); RBC 3.59 XMIL (4.2-5.4); RDW 16.2 % (11.5-14.5)
[2019-07-29 05:36] LABS: BASO# 0.03 X1000 (0.0-0.2); EOS# 0.18 X1000 (0.0-0.7); IMM GRAN# 0.02 X1000 (0.0-0.04); MONO# 0.49 X1000 (0.11-0.59)
[2019-07-29 05:59] LABS: ALBUMIN 3.3 g/dL (3.5-5.0); CALCIUM 9.2 mg/dL (8.8-10.2); CREATININE 1.4 mg/dL (0.5-0.9); PHOSPHORUS 3.4 mg/dL (2.7-4.5); POTASSIUM 4.2 mmol/L (3.5-5.1)
[2019-07-29] MEDS: HUMULIN R SUBQ SCH ×4 (06:03→21:30)
[2019-07-29] MEDS: ROCEPHIN 1 GM in NS 50 ML IV SCH (06:36)
[2019-07-29] MEDS: ASPIRIN PO SCH (09:56)
[2019-07-29] MEDS: TOPROL XL PO SCH ×2 (09:56→20:06)
[2019-07-29] MEDS: FERROUS SULFATE PO SCH ×2 (09:56→20:06)
[2019-07-29] MEDS: CORDARONE PO SCH ×2 (09:56→20:06)
[2019-07-29] MEDS: PROTONIX IV SCH (09:56)
[2019-07-29] MEDS: PERICOLACE PO SCH ×2 (09:56→20:06)
[2019-07-29] MEDS: CENTRUM SILVER PO SCH (09:56)
[2019-07-29] MEDS: TIMOPTIC 0.5% OPH SOLUTION BOTH EYES SCH ×2 (09:57→20:06)
[2019-07-29] MEDS: ARIMIDEX PO SCH (09:58)
--- NOTE | 2019-07-29 10:30 | PROGRESS NOTE ---
DATE: 07/29/2019 SUBJECTIVE: The patient is resting comfortably in bed. She has no complaints today. OBJECTIVE: Vital Signs: Temperature 98.7 degrees, blood pressure 118/57, heart rate 58, respirations 18, O2 saturation 98% on room air. Intake 2.2 L, output 900. General: This is an overweight female, lying in bed in no acute distress. Heart: S1, S2 normal. Regular rate and rhythm. Lungs: Clear to auscultation bilaterally. Abdomen: Positive bowel sounds. Soft, nontender, nondistended. Extremities: No edema, no cyanosis. Neurologic: The patient is alert and oriented x4. LABORATORY DATA: White blood cell count 7.5, hemoglobin 9.8, hematocrit 31, platelets 252,000. Sodium 138, potassium 4.2, chloride 105, CO2 of 20, BUN 27, creatinine 1.4, glucose 156. ASSESSMENT AND PLAN: 1. Acute kidney injury. Slowly improving. Continue with intravenous fluids. 2. Renal mass. Once the patient's creatinine normalizes, will plan to do a contrasted CT scan to further assess this finding. 3. Status post coronary artery bypass graft 2 months ago. Continue on the current cardiac medications. 4. Persistent nausea. This appears to be improved today. Continue with intravenous fluids and Protonix. Gastroenterology is following. 5. Obesity. Aware. 6. Diabetes mellitus type 2. Continue on sliding scale insulin. 7. Deep vein thrombosis prophylaxis. Continue on heparin. 8. Physical Therapy has been consulted. cc: Jacqueline Kay MD MTDD
[2019-07-29] MEDS: NS 1,000 ML IV SCH ×2 (12:41→23:25)
--- NOTE | 2019-07-29 13:59 | GASTROENTEROLOGY PROGRESS NOTE ---
DATE: 07/29/2019 SUBJECTIVE: At the time of my evaluation, patient was eating lunch, tolerating at present time. She states she still has some nausea; sometimes she has to make herself eat, but currently she is feeling better. OBJECTIVE: Vital signs: Temperature 97.8 degrees, pulse 59, respirations 20, blood pressure 153/73. General: Patient is awake and alert. No acute distress. Tolerating her diabetic diet for lunch. LABORATORY: Hematology: WBC 7.50, hemoglobin 9.8, hematocrit 31.2, MCV 86.9. Chemistry: Sodium 138, potassium 4.2, chloride 105, CO2 20, BUN 27, creatinine 1.4, glucose 156. ASSESSMENT AND PLAN: 1. Acute kidney injury, improving. 2. Renal mass. I think there are plans to do a CT scan, once her renal function has improved to do the contrasted CT scan. 3. Recent coronary artery bypass graft. Continue current management. 4. Nausea. Continue PPI. Follow anti-reflux measures. 5. Other medical problems: Diabetes type 2. Patient seems to be doing better. Will continue PPI. She needs to follow up with Dr. Dunaway as an outpatient regarding possibility of iatrogenic issues causing her GI symptoms. GI will be available during the hospital course. She can follow up with us as an outpatient once discharged. I have discussed this case with Dr. Burgos. Dictated by DREAD Garland for Jace Burgos MD cc: DREAD Santoyo MD
[2019-07-29] MEDS: XARELTO PO SCH (16:47)
[2019-07-29] MEDS: DESYREL PO SCH (20:06)
[2019-07-29] MEDS: NEURONTIN PO SCH (20:06)
[2019-07-29] MEDS: LIPITOR PO SCH (20:06)
[2019-07-29] MEDS: XALATAN 0.005% OPH SOLN BOTH EYES SCH (20:06)
[2019-07-29] MEDS: TYLENOL PO PRN (20:10)
[2019-07-29] MEDS: DUONEB (A & A) INH PRN (20:21)
[2019-07-29] MEDS: PULMICORT INH PRN (20:21)
[2019-07-29] MEDS: LANTUS INSULIN SUBQ SCH (21:30)
[2019-07-30] MEDS: ROBAXIN PO SCH ×4 (02:20→21:34)
[2019-07-30 05:26] LABS: BASO# 0.02 X1000 (0.0-0.2); BASO% 0.3 % (0.0-0.8); EOS# 0.17 X1000 (0.0-0.7); EOS% 2.3 % (0.0-10.0); HEMOGLOBIN 9.8 g/dL (12.0-16.0); LYMPH% 17.5 % (20.5-51.1); MCH 27.5 PG (27-31); MCHC 31.6 g/dL (33-37); MCV 87.1 FL (81-99); MONO# 0.59 X1000 (0.11-0.59); MPV 9.7 FL (7.4-10.4); NEUT# 5.34 X1000 (1.4-6.5); NEUT% 71.9 % (42.2-75.2); PLT 251 X1000 (130-400); RBC 3.56 XMIL (4.2-5.4); RDW 16.2 % (11.5-14.5); WBC 7.42 X1000 (4.8-10.8)
[2019-07-30 05:52] LABS: CALCIUM 9.4 mg/dL (8.8-10.2); CREATININE 1.3 mg/dL (0.5-0.9); POTASSIUM 4.3 mmol/L (3.5-5.1)
[2019-07-30] MEDS: HUMULIN R SUBQ SCH ×4 (06:22→21:17)
[2019-07-30] MEDS: ROCEPHIN 1 GM in NS 50 ML IV SCH (06:22)
[2019-07-30] MEDS: DUONEB (A & A) INH PRN ×2 (08:06→19:11)
[2019-07-30] MEDS: PULMICORT INH PRN ×2 (08:06→19:12)
[2019-07-30] MEDS: CORDARONE PO SCH ×2 (08:53→21:35)
[2019-07-30] MEDS: TOPROL XL PO SCH ×2 (08:53→21:35)
[2019-07-30] MEDS: ASPIRIN PO SCH (08:53)
[2019-07-30] MEDS: ARIMIDEX PO SCH (08:53)
[2019-07-30] MEDS: PERICOLACE PO SCH ×2 (08:53→21:35)
[2019-07-30] MEDS: FERROUS SULFATE PO SCH ×2 (08:53→21:35)
[2019-07-30] MEDS: TIMOPTIC 0.5% OPH SOLUTION BOTH EYES SCH ×2 (09:00→21:44)
--- NOTE | 2019-07-30 10:00 | Diag Imaging Result Doc PS360 ---
EXAM: CHEST-PORTABLE HISTORY: dyspnea TECHNIQUE: Chest single view COMPARISON: 07/27/2019 FINDINGS: The lungs are well expanded. The heart is not enlarged. There are sternal wires and surgical clips. The vessels are not distended. There are no infiltrates. No effusion identified. IMPRESSION: Negative exam. Electronically signed by Josué Walker 07/30/2019 9:57 AM
[2019-07-30] MEDS: NS 1,000 ML IV SCH ×2 (10:05→12:36)
[2019-07-30] MEDS: SODIUM CHLORIDE 0.9% INJ SCH (10:09)
[2019-07-30] MEDS: PROTONIX IV SCH (10:09)
[2019-07-30] MEDS: CENTRUM SILVER PO SCH (12:40)
--- NOTE | 2019-07-30 14:25 | GASTROENTEROLOGY PROGRESS NOTE ---
DATE: 07/30/2019 SUBJECTIVE: The patient was awake and alert. No acute distress. She states she has had less nausea today. She states she tolerated her breakfast. At that time on my evaluation, Dr. Ballard came in on consultation for a renal mass. OBJECTIVE: Vital Signs: Temperature 97 degrees, pulse 59, respirations 16, blood pressure 130/80. General: The patient is awake, alert, no acute distress. LABORATORY DATA: Hematology: WBC 7.42, hemoglobin 9.8, hematocrit 31, MCV 87.1. Coagulation: Prothrombin time 22.2, INR 1.9, PTT 37.2 on 07/27/2019. Chemistry: Sodium 138, potassium 4.3, chloride 107, CO2 of 19, BUN 21, creatinine 1.3, glucose 141, calcium 9.4. ASSESSMENT AND PLAN: 1. Acute kidney injury, improving. 2. Renal mass. The patient has been seen by Dr. Ballard 3. Recent coronary artery bypass graft. Continue current management. 4. Nausea, continue proton pump inhibitor. Possibility of iatrogenic effects of her other medications. Recommend she follow up with Dr. Dunaway as an outpatient regarding polypharmacy. We will continue to follow and further plans will be made according to her progress. I have discussed this case with Dr. Burgos. Dictated by DREAD Garland for Jace Burgos MD cc: DREAD Santoyo MD [facility]
--- NOTE | 2019-07-30 14:31 | CONSULTATION ---
DATE OF CONSULTATION: 07/30/2019 ATTENDING AND REFERRING PHYSICIAN: Hospitalist. HISTORY OF PRESENT ILLNESS: This 74-year-old female was admitted with cardiac problems. She was also noted to have renal insufficiency. This has changed from her recent admission. A renal ultrasound revealed a 2.5 cm hyperechoic mass without shadowing in the lower pole of the left kidney. The patient denies any urologic problems. She has had no problems with kidney stones or hematuria. She states she has an occasional urinary tract infection. She states she is being treated for an infection at this time. She denies any previous urologic surgery. She states she has never had problems with her kidneys before. PAST MEDICAL HISTORY: Diabetes, hypertension, elevated cholesterol, history of atrial fibrillation, coronary artery disease, history of breast cancer. CURRENT MEDICATIONS: Documented on the chart. PAST SURGICAL HISTORY: Left breast biopsy and lumpectomy with subsequent radiation therapy for breast cancer. Hysterectomy, left ankle surgery, cataract surgery, coronary artery bypass graft. SOCIAL HISTORY: There is no tobacco or alcohol use. She lives in assisted living. ALLERGIES: She is allergic to triamterene and hydrochlorothiazide. REVIEW OF SYSTEMS: She states usually she is in good health. She states she has been having some shortness of breath. She denies bowel problems. She states she has been having some numbness and tingling in each foot but no other neurologic problems. PHYSICAL EXAMINATION: General: A mildly obese, age-apparent, normally-developed, white female, oriented in all ways and cooperative. HEENT: Normal for age. Lungs: Clear. Cardiovascular: Regular rate and rhythm with holosystolic murmur. Abdomen: Obese, soft, nontender. No hepatosplenomegaly or masses. Normal bowel sounds. Back: No CVA tenderness. Exam: The bladder is not palpable. Extremities: No clubbing, cyanosis, or edema. Neurologic: No focal deficits. LABORATORY EVALUATION: White count of 7.42, hemoglobin 9.8, hematocrit 31, and platelets are 251,000. Serum electrolytes have a sodium of 134, potassium of 4.3, chloride 99, bicarb 18, BUN 29, creatinine 1.6. Renal ultrasound images reviewed revealed a 2.5 cm, somewhat hyperechoic area in the left lower pole kidney. There is no shadowing. The remaining portion of the left and right kidneys appear normal. There is no hydronephrosis. 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 PLAN: Recommend CT urogram when renal function allows. If the kidney function does not improve enough where it is thought she could have contrast, a CT stone search would still show fatty tissue in the tumor which is diagnostic for angiomyolipoma. Angiomyolipomas are not treated until they be come about 4 to 5 cm in diameter, at which time they have the blood vessels to the tumor ablated. Thank you for this consultation. cc: Petar Ballard MD
--- NOTE | 2019-07-30 14:56 | PROGRESS NOTE ---
DATE: 07/30/2019 SUBJECTIVE: The patient is sitting up, eating breakfast. She states that her nausea has improved. She has had no episodes of vomiting and she is having bowel movements. OBJECTIVE: Vital Signs: Temperature 97 degrees, blood pressure 130/80, heart rate 67, respirations 15, O2 saturation is 99% on room air. General: This is a morbidly obese female lying in bed, in no acute distress. Heart: S1, S2 normal. Regular rate and rhythm. Lungs: Equal air entry bilaterally. No wheezing. No rales. No rhonchi. Abdomen: Positive bowel sounds. Soft, nontender, nondistended. Extremities: No edema. No cyanosis. Neurologic: The patient is alert and oriented x4. LABS: White blood cell count 7.4, hemoglobin 9.8, hematocrit 31, platelets 251,000. Sodium 138, potassium 4.3, chloride 107, CO2 19, BUN 21, creatinine 1.3, glucose 141. ASSESSMENT AND PLAN: 1. Acute kidney injury. Slowly improving. Continue with IV fluid hydration. 2. Urinary tract infection secondary to Escherichia coli. Continue on Rocephin and transition to an oral antibiotic upon discharge. 3. Small renal mass. We will plan to reimage the patient possibly tomorrow. The patient has been seen by the urologist. 4. Diabetes mellitus type 2. Continue on sliding scale insulin. 5. Paroxysmal atrial fibrillation. Continue on amiodarone and Xarelto. 6. Coronary artery disease status post coronary artery bypass graft. Continue on the current cardiac medications. 7. Obesity. Aware. 8. Nausea. This appears to have resolved. Continue with PPI therapy. 9. Deep vein thrombosis prophylaxis. The patient is on Xarelto. 10. Disposition. Hopefully the patient can be discharged home tomorrow. cc: Jacqueline Kay MD MTDD
[2019-07-30] MEDS: XARELTO PO SCH (18:02)
[2019-07-30] MEDS: TYLENOL PO PRN (18:10)
[2019-07-30] MEDS: LIPITOR PO SCH (21:35)
[2019-07-30] MEDS: DESYREL PO SCH (21:35)
[2019-07-30] MEDS: NEURONTIN PO SCH (21:35)
[2019-07-30] MEDS: LANTUS INSULIN SUBQ SCH (21:35)
[2019-07-30] MEDS: XALATAN 0.005% OPH SOLN BOTH EYES SCH (21:44)
[2019-07-31] MEDS: ROBAXIN PO SCH ×4 (02:28→21:25)
[2019-07-31] MEDS: NS 1,000 ML IV SCH ×3 (02:28→16:47)
[2019-07-31] MEDS: ROCEPHIN 1 GM in NS 50 ML IV SCH (05:55)
[2019-07-31] MEDS: HUMULIN R SUBQ SCH ×4 (06:03→21:36)
[2019-07-31] MEDS: SODIUM CHLORIDE 0.9% INJ SCH (10:39)
[2019-07-31] MEDS: PROTONIX IV SCH (10:39)
[2019-07-31] MEDS: PERICOLACE PO SCH ×2 (10:40→21:25)
[2019-07-31] MEDS: CENTRUM SILVER PO SCH (10:40)
[2019-07-31] MEDS: CORDARONE PO SCH ×2 (10:40→21:25)
[2019-07-31] MEDS: TOPROL XL PO SCH ×2 (10:40→21:25)
[2019-07-31] MEDS: FERROUS SULFATE PO SCH ×2 (10:40→21:25)
[2019-07-31] MEDS: ASPIRIN PO SCH (10:40)
[2019-07-31] MEDS: ARIMIDEX PO SCH (10:42)
[2019-07-31] MEDS: TIMOPTIC 0.5% OPH SOLUTION BOTH EYES SCH ×2 (10:45→21:24)
--- NOTE | 2019-07-31 13:57 | GASTROENTEROLOGY PROGRESS NOTE ---
DATE: 07/31/2019 SUBJECTIVE: Patient was walking in the [place] with Physical Therapy at the time of my visit. She is currently denying nausea. She has been seen by Dr. Ballard for a possible renal mass. Recommendations for a CT urogram or CT stone search with contrast once her kidney function improves. Patient has tolerated her diet. OBJECTIVE: Vital Signs: Temperature 98.1 degrees, pulse 63, respirations 20, blood pressure 175/64. General: The patient was awake and alert. No acute distress. She is walking in the halls. She reported some mild shortness of breath when up and moving around. LABORATORY DATA: Hematology: WBC 7.42 hemoglobin 9.8, hematocrit 31.0, platelet 251,000. Chemistry: Sodium 138, potassium 4.3, chloride 107, CO2 19, BUN 21, creatinine 1.3, glucose 141. ASSESSMENT: 1. Nausea has improved. 2. Acute kidney injury, improving. 3. Questionable renal mass. Patient has been seen by Dr. Ballard. PLAN: Continue PPI. Recommend she follow up with Dr. Dunaway once discharged regarding her other medications, possibility of iatrogenic reasoning for her nausea. Will continue to be available and following during her hospital course. Further plans to be made according to her progress. I have discussed this case with Dr. Burgos. Dictated by DREAD Garland for Jace Burgos MD cc: DREAD Santoyo MD [facility]
[2019-07-31] MEDS: XARELTO PO SCH (16:28)
--- NOTE | 2019-07-31 18:08 | PROGRESS NOTE ---
DATE: 07/31/2019 PIE FILLING MIXER: Dr. Keith Toscano. Her family doctor is Dr. Jason Dunaway. A 74-year-old had increasing weakness and chest pressure and tightness and shortness of breath started having shortness of breath and came in was admitted with chest pain. Moved to the medical floor, underlying atrial fibrillation, has chronic atrial fibrillation, diabetes mellitus type 2, hypertension, coronary artery disease. They did an echocardiogram and showed ejection fraction around 64%. Anyway she states she is feeling better and doing better and was talking about trying to go home. EXAM: Temperature 98.1 degrees, pulse 57, respirations 18, blood pressure 140/61. Pupils are equal round.Lungs: Clear in all lung clement. Cardiovascular: Regular rhythm and rate without murmur or S3. Abdomen: Soft. Skin: Warm and dry. Blood sugars 114, 123, 163. ASSESSMENT AND PLAN: 1. Nausea which is improved. 2. Acute kidney injury, improved. 3. Questionable renal mass evaluated by Dr. Ballard I believe. 4. Urinary tract infection with Escherichia coli. Getting Rocephin intravenous. 5. Diabetes mellitus type 2, follow blood sugars. 6. Paroxysmal atrial fibrillation. Apparently she has chronic atrial fibrillation, she is on amiodarone and Xarelto already. 7. Coronary artery disease status post artery bypass graft, continue current medications. 8. Obesity. 9. Hopefully disposition she can go home will see what the rest of the crew wants to do. Hematocrit stable at 31, hemoglobin 9.8. Electrolytes unremarkable, serum creatinine down to 1.3, did get up to 1.6. cc: Marvin García MD [facility]
[2019-07-31] MEDS: DESYREL PO SCH (21:25)
[2019-07-31] MEDS: LIPITOR PO SCH (21:25)
[2019-07-31] MEDS: TYLENOL PO PRN (21:25)
[2019-07-31] MEDS: XALATAN 0.005% OPH SOLN BOTH EYES SCH (21:25)
[2019-07-31] MEDS: NEURONTIN PO SCH (21:25)
[2019-07-31] MEDS: LANTUS INSULIN SUBQ SCH (21:26)
[2019-07-31] MEDS: PULMICORT INH PRN (21:52)
[2019-07-31] MEDS: DUONEB (A & A) INH PRN (21:53)
[2019-08-01] MEDS: ROBAXIN PO SCH ×3 (04:26→14:26)
[2019-08-01] MEDS: NS 1,000 ML IV SCH (04:50)
[2019-08-01] MEDS: ROCEPHIN 1 GM in NS 50 ML IV SCH (06:09)
[2019-08-01] MEDS: HUMULIN R SUBQ SCH ×2 (06:11→11:06)
[2019-08-01] MEDS: DUONEB (A & A) INH PRN (07:58)
[2019-08-01] MEDS: PULMICORT INH PRN (07:58)
[2019-08-01] MEDS: TOPROL XL PO SCH (08:26)
[2019-08-01] MEDS: TIMOPTIC 0.5% OPH SOLUTION BOTH EYES SCH (08:26)
[2019-08-01] MEDS: CENTRUM SILVER PO SCH (08:26)
[2019-08-01] MEDS: PERICOLACE PO SCH (08:26)
[2019-08-01] MEDS: CORDARONE PO SCH (08:26)
[2019-08-01] MEDS: ASPIRIN PO SCH (08:26)
[2019-08-01] MEDS: FERROUS SULFATE PO SCH (08:26)
[2019-08-01] MEDS: ARIMIDEX PO SCH (08:27)
[2019-08-01] MEDS ORDERED: PROTONIX PO SCH (10:00)
[2019-08-01 12:01] VITALS: BP 130/50
--- NOTE | 2019-08-01 13:49 | GASTROENTEROLOGY PROGRESS NOTE ---
DATE: 08/01/2019 SUBJECTIVE: The patient is awake and alert. She is lying in bed in no acute distress. She has complained of some shortness of breath and chest pressure. She has denied nausea and has tolerated her diet. No reported abdominal pain. OBJECTIVE: Vital Signs: Temperature 98.5 degrees, pulse 55, respirations 20, blood pressure 138/58. General: Patient is awake, alert, no acute distress. LABORATORY: Hematology: WBC 7.42, hemoglobin 9.8, hematocrit 31.0, MCV 87.1, platelets 251,000. Chemistry: Sodium 138, potassium 4.3, chloride 107, CO2 19, BUN 21, creatinine 1.3, glucose 141. ASSESSMENT AND PLAN: 1. Nausea has improved. She is tolerating her diet. 2. Acute kidney injury improved. 3. Questionable renal mass. The patient has been seen by Dr. Ballard. 4. Coronary artery disease with recent coronary artery bypass graft. Continue current medications. Continue PPI. Follow other recommendations per hospitalist regarding plans for discharge. As far as GI is concerned, she can follow up with us as an outpatient. Continue PPI. Follow anti-reflux measures. Recommend she follow up with Dr. Dunaway regarding polypharmacy and possible iatrogenic reasons for her nausea. Further plans to be made according to her progress. I have discussed this case with Dr. Burgos. Dictated by DREAD Garland for Jace Burgos MD cc: DREAD Santoyo MD
--- NOTE | 2019-08-01 14:10 | DISCHARGE SUMMARY ---
ADMISSION DATE: 07/27/2019 DISCHARGE DATE: 08/01/2019 PRIMARY PHYSICIAN: This is a patient of Dr. Jason Dunaway. FLAME CUTTING MACHINE OPERATOR HELPER: Dr. Keith Toscano. HISTORY AND HOSPITAL COURSE: This is a 74-year-old female who had increasing weakness, chest pressure and tightness, and started to have shortness of breath the evening before, on 07/26/2019, having severe weakness for the past few days, chest pressure and tightness for a few days. The patient states that she was having difficulty getting out of bed. Her home nurse visited her and encouraged her to come to the hospital at the time. The patient describes her chest tightness and heaviness feels like something sitting on her chest. She states the pain comes and goes. On inspection, she did have a midline incision down her sternum from CABG done in 05/2019. Chest was not tender to touch. She states that she does have some shortness of breath, but did not have any pain with her shortness of breath, and was concerned about increased numbness in her right middle finger and both feet. She describes a 20-pound weight loss over the past month. Admitted to the hospital, and discharged on 07/18/2019, was there for congestive heart failure, so admission diagnosis was chest pain, atypical, with risk factors. Her CK and her troponin were negative. She has a history of chronic atrial fibrillation, rate was controlled. Blood sugars and diabetes were monitored and under good control. She had a renal ultrasound done on 07/28/2019 that showed a solid mass in the left lower pole that may represent angiomyolipoma given relatively hypoechoic appearance. Further evaluation of CT, wanted to wait until renal function had improved, and set that up as an outpatient. GI was consulted. Presented with dyspepsia and nausea. Differential diagnosis could be diabetic gastroparesis, and could be secondary or iatrogenic secondary to her medication. She has been on famotidine for peptic ulcer disease and stress ulcer. She seemed to improve from that standpoint, and she requested to go home, so we will discharge her home on 08/01/2019, and let her go home on Lipitor 1 p.o. at bedtime, Cordarone, I think it is a 200 mg tablet p.o. b.i.d., anastrazole 1 tablet daily, aspirin 81 mg a day, Pulmicort 1 inhalation p.r.n. daily, ferrous sulfate 325 mg p.o. b.i.d., Neurontin 100 mg at bedtime, hydrocodone 5/325 one every 4 hours p.r.n., SoloStar 10 units subcutaneously at bedtime, iron/calcium/folic acid combination 1 a day, takes Xalatan eyedrops, takes methocarbamol 1 tablet every 6 hours, metoprolol ER 1 tablet p.o. b.i.d., Zofran 1 tablet p.r.n., Altace 5 mg b.i.d., rivaroxaban 20 mg daily, Criselda-Colace 1 p.o. b.i.d., spironolactone 25 mg p.o. every 48 hours, Timoptic 0.5 mg 5.5% one drop to each eye b.i.d., and Desyrel 1 tablet at bedtime. Will let her go home. Note that her renal function has improved, and creatinine is down to 1.3. Recommended to follow up with renal CT with contrast at some point as an outpatient. She very much wants to go home at this point. cc: Marvin García MD
== END 2019-08-01 15:32 | disposition home health service (06) ==
LOC: SUPCPDRO → 1N 10:24 → ED 10:24 → SUATTDRO 14:47
PROVIDERS: ATTEND Emergency Medicine